=== PATIENT | female | born 1960 | race Caucasian/White ===

== ENCOUNTER 2016-10-21 01:22 | Inpatient (IN) | payer SELFPAY ==
[~2016-10-21] VITALS: Ht 152.4 cm; Wt 95.5 kg
[2016-10-21] VITALS (16 sets, daily range): BP systolic 118–175; BP diastolic 56–102
[2016-10-21 06:27] LABS: HEMATOCRIT 40.5 % (36.0-47.0); HEMOGLOBIN 13.8 g/dL (12.0-15.5); RED BLOOD COUNT 4.87 x10^6/uL (3.50-5.40); RED CELL DISTRIBUTION WIDTH 14.8 % (11.5-14.5); WHITE BLOOD COUNT 8.8 x10^3/uL (4.0-11.0)
[2016-10-21 06:49] LABS: CALCIUM 9.3 mg/dL (8.5-10.1); CREATININE 0.5 mg/dL (0.6-1.0); GFR 128.1; POTASSIUM 3.7 mmol/L (3.5-5.1)
[2016-10-21 06:50] LABS: CHOLESTEROL/HDL RATIO 3.5
[2016-10-21] MEDS ORDERED: amLODIPine BESYLATE 10 MG TABLET PO ONE (07:00)
[2016-10-21] MEDS ORDERED: LISINOPRIL 10 MG TABLET PO ONE (07:00)
[2016-10-21] MEDS ORDERED: BUTALB/APAP/CAFEIN 50/325/40MG TABLET. PO PRN (08:00)
[2016-10-21] MEDS ORDERED: ACETAMINOPHEN 325 MG TABLET. PO PRN (08:00)
[2016-10-21] MEDS ORDERED: ONDANSETRON PF 4 MG/2 ML VIAL. IV PRN (08:00)
--- NOTE | 2016-10-21 09:32 | PDOC2 ---
JEWEL JACKSON ADVERTISEMENT COMPOSITOR 10/21/16 0931: CARDIAC CONSULT DATE OF CONSULT Date of Consult DATE: 10/21/16 TIME: 09:28 REASON FOR CONSULT Reason for Consult: Elevated troponin REFERRING PHYSICIAN Referring Physician: Dr. Erickson SOURCE Source: Chart review, Patient HISTORY OF PRESENT ILLNESS HISTORY OF PRESENT ILLNESS This is a 55 yo female who initially presented to [facility] with complaints of SHIN. Patient report she woke up yesterday morning with SHIN and felt "sluggish." Went to work yesterday evening. 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 Had vision changes. No CP, palpitations, dizziness, diaphoresis, or SOA. Check BP, was 243/127. Rested for a bit, rechecked BP; remained elevated. Went to the ED for further evaluation. [facility] labs noted; trop 0.073. BP significantly elevated. CT head negative for acute changes. CXR negative. Transferred to [facility] for further care. Previous h/o hypertension. Was on lisinopril, had cough. Medication was discontinued due to ongoing cough. Blood pressure was reportedly "borderline" so antiHTN therapy was not replaced. No previous cardiac workup. PAST MEDICAL HISTORY Cardiovascular: HTN Pulmonary: No pertinent hx GI: No pertinent hx Heme/Onc: No pertinent hx Hepatobiliary: No pertinent hx Psych: No pertinent hx Musculoskeletal: Other (chronic pain) Rheumatologic: Fibromyalgia, Other (Lupus ) ENT: No pertinent hx Endocrine: Diabetes Dermatology: No pertinent hx PAST SURGICAL HISTORY Past Surgical History: Cholecystectomy, Tubal Ligation SOCIAL HISTORY Smoke: No ALCOHOL: none Drugs: None Lives: with Family CURRENT MEDICATIONS CURRENT MEDICATIONS Current Medications Medications (Trade) Dose Ordered Sig/Jordyn Route PRN Reason Start Time Stop Time Status Last Admin Dose Admin Amlodipine Besylate (Norvasc) 10 mg 1X ONCE PO 10/21/16 07:00 10/21/16 07:03 DC 10/21/16 08:20 Ondansetron HCl (Zofran) 4 mg PRN Q8HRS PRN IV NAUSEA/VOMITING 10/21/16 08:00 10/21/16 08:20 Acetaminophen/ Butalbital/ Caffeine (Fioricet) 1 tab PRN Q6HRS PRN PO MIGRAINE HEADACHE 10/21/16 08:00 10/21/16 08:19 ALLERGIES ALLERGIES: Coded Allergies: lisinopril (Verified Adverse Reaction, Intermediate, 10/21/16) Coughing ROS Review of System 14 point ROS conducted with pertinent positives noted above in HPI. PHYSICAL EXAM General: Alert, Oriented X3, Cooperative, No acute distress HEENT: Atraumatic, Mucous membr. moist/pink Lungs: Clear to auscultation, Normal air movement Heart: Regular rate, Normal S1, Normal S2 Abdomen: Soft, No tenderness Extremities: No cyanosis, No edema, Normal pulses Skin: No breakdown, No significant lesion Neuro: Normal speech, Sensation intact Psych/Mental Status: Mental status NL, Mood NL MUSCULOSKELETAL: Other (left knee pain) VITALS VITALS Vital Signs Date Time Temp Pulse Resp B/P (MAP) Pulse Ox O2 Delivery O2 Flow Rate FiO2 10/21/16 08:20 85 150/55 10/21/16 08:15 Room Air 10/21/16 07:00 97.8 17 93 97.8 LABS Lab: Laboratory Tests Test 10/21/16 06:16 White Blood Count 8.8 x10^3/uL (4.0-11.0) Red Blood Count 4.87 x10^6/uL (3.50-5.40) Hemoglobin 13.8 g/dL (12.0-15.5) Hematocrit 40.5 % (36.0-47.0) Mean Corpuscular Volume 83 fL (79-100) Mean Corpuscular Hemoglobin 28 pg (25-35) Mean Corpuscular Hemoglobin Concent 34 g/dL (31-37) Red Cell Distribution Width 14.8 % (11.5-14.5) Platelet Count 281 x10^3/uL (140-400) Sodium Level 140 mmol/L (136-145) Potassium Level 3.7 mmol/L (3.5-5.1) Chloride Level 105 mmol/L (98-107) Carbon Dioxide Level 27 mmol/L (21-32) Anion Gap 8 (6-14) Blood Urea Nitrogen 13 mg/dL (7-20) Creatinine 0.5 mg/dL (0.6-1.0) Estimated GFR (Cockcroft-Gault) 128.1 Glucose Level 106 mg/dL (70-99) Calcium Level 9.3 mg/dL (8.5-10.1) Troponin I Quantitative 0.317 ng/mL (0.000-0.055) Triglycerides Level 50 mg/dL (0-150) Cholesterol Level 186 mg/dL (0-200) LDL Cholesterol, Calculated 123 mg/dL (0-100) VLDL Cholesterol, Calculated 10 mg/dL (0-40) Non-HDL Cholesterol Calculated 133 mg/dL (0-129) HDL Cholesterol 53 mg/dL (40-60) Cholesterol/HDL Ratio 3.5 ASSESSMENT/PLAN ASSESSMENT/PLAN 1. Malignant hypertension 2. NSTEMI Recommendations Repeat EKG Check lipids, echo. NSTEMI likely secondary to malignant hypertension Stop Cardene gtt. Continue Norvasc. Allergy to ESSIE (cough). Will add ARB If echo WNL, will plan on outpatient ischemic evaluation. F/u in 4-6 weeks. Problems: DARY ISIDRO MD 10/21/16 1902: CARDIAC CONSULT ALLERGIES ALLERGIES: Coded Allergies: lisinopril (Verified Adverse Reaction, Intermediate, 10/21/16) Coughing ASSESSMENT/PLAN ASSESSMENT/PLAN Patient is a 55-year-old woman presenting with hypertensive emergency. At baseline she does not take any medications. She is morbidly obese and likely has sleep apnea according to her history. On examination she has normal heart tones. Her echocardiogram demonstrates mild anterior wall abnormality. She has elevated biomarkers in the setting of systolic blood pressure greater than 200. I had a long discussion with the patient today about the risks and benefits of further evaluation including cardiac catheterization for her elevated troponin and wall motion abnormality noted on echocardiography. After discussion the patient wishes to proceed with cardiac catheterization which will be planned for Monday after titration of medications for blood pressure control. Thank you for consultation. Problems: JEWEL JACKSON APRN Oct 21, 2016 09:31 DARY ISIDRO MD Oct 21, 2016 19:02
--- NOTE | 2016-10-21 09:58 | RAD ---
Indication: Transient ischemic attacks. Grayscale, color-flow and duplex Doppler evaluation of both carotid systems was performed. No significant atherosclerotic plaque is identified in either carotid system. The velocities are normal bilaterally. No velocity elevation or stenosis is seen. Both vertebral arteries show antegrade flow. Peak CCA velocity on the right is 65 cm/s and on the left 76 cm/s. Peak ICA velocity on the right is 66 cm/s and on the left 62 cm/s. The ICA to CCA ratio on the right is 1.0 and on the left is 1.0. Impression: No evidence of a hemodynamically significant stenosis.
[2016-10-21] MEDS ORDERED: LOSARTAN POTASSIUM 25 MG TABLET. PO SCH (10:30)
--- NOTE | 2016-10-21 11:21 | PDOC2 ---
NEUROLOGY CONSULT Date of Admission Date of Admission DATE: 10/21/16 TIME: 11:10 Reason for Consult Reason for Consult: Stroke symptoms Referring Physician Referring Physician: Dr. Erickson Source Source: Chart review, Patient History of Present Illness History of Present Illness The patient is a 55-year-old right-handed female with history of migraine headaches dating back to age 9 as well as hypertension. She has been off her blood pressure medicines for several years. She has tried Topamax and Elavil which caused excessive side effects of gets along with Excedrin migraine as needed. Yesterday morning she did not feel well and went to work. 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 She also had a severe typical migraine headache. Indeed, most of her migraines are associated with visual symptoms. She has been told that her MRI shows what sounds like demyelinating changes from migraines. She denies any history of stroke, seizure, or head injury. Headache is 2/10 now. All of her focal neurological symptoms have cleared. Past Medical History Pulmonary: Pneumonia CENTRAL NERVOUS SYSTEM: Migraine Rheumatologic: Other (possible lupus) ENT: Other Endocrine: Diabetes Past Surgical History Past Surgical History: Cholecystectomy, Tubal Ligation Family History Family History: Other (Alzheimer's) Social History Social History , pharmacy consultant, no alcohol or tobacco, recently moved here from [place] Current Medications Current Medications Current Medications Nicardipine HCl 50 mg/Sodium Chloride 270 ml @ 0 mls/hr CONT PRN IV SEE I/O RECORD; Start 10/21/16 at 04:30 Amlodipine Besylate (Norvasc) 10 mg 1X ONCE PO Last administered on 10/21/16 08:20; Start 10/21/16 at 07:00; Stop 10/21/16 at 10:57; Status DC Lisinopril (Prinivil) 10 mg 1X ONCE PO ; Start 10/21/16 at 07:00; Stop at 07:03; Status DC Ondansetron HCl (Zofran) 4 mg PRN Q8HRS PRN IV NAUSEA/VOMITING Last administered on 10/21/16 08:20; Start 10/21/16 at 08:00 Acetaminophen (Tylenol) 650 mg PRN Q8HRS PRN PO HEADACHE; Start 10/21/16 at 08: 00 Acetaminophen/ Butalbital/ Caffeine (Fioricet) 1 tab PRN Q6HRS PRN PO MIGRAINE HEADACHE Last administered on 10/21/16t 08:19; Start 10/21/16 at 08:00 Losartan Potassium (Cozaar) 25 mg DAILY PO ; Start 10/21/16 at 10:30 Amlodipine Besylate (Norvasc) 10 mg DAILY PO ; Start 10/22/16 at 09:00; Stop 10/22 at 09:00; Status DC Propranolol HCl (Inderal) 40 mg DAILY PO ; Start 10/21/16 at 11:30 Aspirin (Children'S Aspirin) 81 mg DAILYWBKFT PO ; Start 10/21/16 at 11:30 Allergies Allergies: Coded Allergies: lisinopril (Verified Adverse Reaction, Intermediate, 10/21/16) Coughing ROS Review of System Patient denies fevers, chills, weight loss, dyspnea, angina, abdominal pain, change in bowels, or dysuria. 14 point review of systems is negative. Physical Exam Physical Examination PHYSICAL EXAMINATION: Vital signs: see above. General appearance is normal and in no acute distress. HEENT: Normocephalic and nontraumatic. Eyes, nose, ears, and throat are unremarkable. Neck is supple. No lymphadenopathy. No bruits are heard over the carotid artery. No crepitus. NEUROLOGICAL EXAMINATION: Mental Status Examination: Alert. Oriented to time, place, and person. Answers questions and follows commends. Pupils are equal round and reactive to light and accommodation. Funduscopic exam: No papilledema. Extraocular movements are intact. Visual field exam shows no defect on the direct confrontation. No motor or sensory deficits on the facial exam. Uvula in the midline and the soft palate elevated symmetrically. No deviation of the tongue to any direction. Gross hearing is normal. Shoulder shrug normal. Muscle tone is normal. Muscle strength is 5. Deep tendon reflexes are 2+ all around. Plantar reflex is with flexion response bilaterally. Avstay-hp-qfuk test performance is accurate. Tandem walk test is accurate. Alternative movements are accurate. Romberg test is negative. Gait is normal. Sensory exam shows no deficits. No cerebellar signs are elicited. Vitals VITALS Vital Signs Date Time Temp Pulse Resp B/P (MAP) Pulse Ox O2 Delivery O2 Flow Rate FiO2 10/21/16 11:00 97.9 71 17 164/94 (117) 94 Room Air 97.9 Labs Labs Laboratory Tests Test 10/21/16 06:16 White Blood Count 8.8 x10^3/uL (4.0-11.0) Red Blood Count 4.87 x10^6/uL (3.50-5.40) Hemoglobin 13.8 g/dL (12.0-15.5) Hematocrit 40.5 % (36.0-47.0) Mean Corpuscular Volume 83 fL (79-100) Mean Corpuscular Hemoglobin 28 pg (25-35) Mean Corpuscular Hemoglobin Concent 34 g/dL (31-37) Red Cell Distribution Width 14.8 % (11.5-14.5) Platelet Count 281 x10^3/uL (140-400) Sodium Level 140 mmol/L (136-145) Potassium Level 3.7 mmol/L (3.5-5.1) Chloride Level 105 mmol/L (98-107) Carbon Dioxide Level 27 mmol/L (21-32) Anion Gap 8 (6-14) Blood Urea Nitrogen 13 mg/dL (7-20) Creatinine 0.5 mg/dL (0.6-1.0) Estimated GFR (Cockcroft-Gault) 128.1 Glucose Level 106 mg/dL (70-99) Calcium Level 9.3 mg/dL (8.5-10.1) Troponin I Quantitative 0.317 ng/mL (0.000-0.055) Triglycerides Level 50 mg/dL (0-150) Cholesterol Level 186 mg/dL (0-200) LDL Cholesterol, Calculated 123 mg/dL (0-100) VLDL Cholesterol, Calculated 10 mg/dL (0-40) Non-HDL Cholesterol Calculated 133 mg/dL (0-129) HDL Cholesterol 53 mg/dL (40-60) Cholesterol/HDL Ratio 3.5 Laboratory Tests Test 10/21/16 06:16 White Blood Count 8.8 x10^3/uL (4.0-11.0) Red Blood Count 4.87 x10^6/uL (3.50-5.40) Hemoglobin 13.8 g/dL (12.0-15.5) Hematocrit 40.5 % (36.0-47.0) Mean Corpuscular Volume 83 fL (79-100) Mean Corpuscular Hemoglobin 28 pg (25-35) Mean Corpuscular Hemoglobin Concent 34 g/dL (31-37) Red Cell Distribution Width 14.8 % (11.5-14.5) Platelet Count 281 x10^3/uL (140-400) Sodium Level 140 mmol/L (136-145) Potassium Level 3.7 mmol/L (3.5-5.1) Chloride Level 105 mmol/L (98-107) Carbon Dioxide Level 27 mmol/L (21-32) Anion Gap 8 (6-14) Blood Urea Nitrogen 13 mg/dL (7-20) Creatinine 0.5 mg/dL (0.6-1.0) Estimated GFR (Cockcroft-Gault) 128.1 Glucose Level 106 mg/dL (70-99) Calcium Level 9.3 mg/dL (8.5-10.1) Troponin I Quantitative 0.317 ng/mL (0.000-0.055) Triglycerides Level 50 mg/dL (0-150) Cholesterol Level 186 mg/dL (0-200) LDL Cholesterol, Calculated 123 mg/dL (0-100) VLDL Cholesterol, Calculated 10 mg/dL (0-40) Non-HDL Cholesterol Calculated 133 mg/dL (0-129) HDL Cholesterol 53 mg/dL (40-60) Cholesterol/HDL Ratio 3.[address] done at [facility]: Findings: The ventricles are appropriate in size, shape, and location for the patient's age. No obvious intracranial mass, mass-effect, midline shift, hemorrhage or obvious acute infarction is identified. Basilar cisterns are patent. Bone windows demonstrate no acute calvarial abnormality. The visualized paranasal sinuses appear clear. Impression: No acute intracranial process. Please note that CT can be relatively insensitive to acute ischemic infarction for up to 24 hours after symptom onset. Carotid Dopplers: Impression: No evidence of a hemodynamically significant stenosis. Assessment/Plan Assessment/Plan Impression: Stroke symptoms probably was related to migraine as well as the hypertension. No evidence that she had a stroke. Prior demyelinating changes on MRI due to migraines Hyperlipidemia Possible lupus, no evidence of current activity Recommendations. Instead of amlodipine, I would like to try a beta ida which will be helpful for her blood pressure as well as migraines. I discussed the side effects. She will take propanolol 40 mg daily for 4 days and then 40 mg twice a day after that. MRI of the brain Echocardiogram Carotid Dopplers, already done Daily aspirin Consider statin Follow-up with me in 6 weeks. Thank you for letting me help with the patient's care. AYAAN CINTRON MD Oct 21, 2016 11:21
[2016-10-21] MEDS: ASPIRIN CHEWABLE 81 MG TABLET. PO SCH (12:09)
[2016-10-21] MEDS: PROPRANOLOL 40 MG TABLET. PO SCH (12:09)
--- NOTE | 2016-10-21 13:00 | CARD ---
APPROVED REPORT EXAM: Two-dimensional and M-mode echocardiogram with Doppler and color Doppler. Other Information Quality : GoodHR: 66bpm Rhythm : NSR INDICATION CVA/TIA Hypertension/HCVD Echo Enhancing Agent Indication: Rule Out Septal Defect Agent/Amount Used: Agitated Saline 16mL RISK FACTORS Obesity 2D DIMENSIONS RVDd3.3 (2.9-3.5cm)Left Atrium(2D)3.7 (1.6-4.0cm) IVSd0.9 (0.7-1.1cm)Aortic Root(2D)2.9 (2.0-3.7cm) LVDd4.7 (3.9-5.9cm)LVOT Diameter2.2 (1.8-2.4cm) PWd1.0 (0.7-1.1cm)LVDs3.3 (2.5-4.0cm) FS (%) 30.5 %SV59.5 ml LVEF(%)57.9 (>50%) Aortic Valve AoV Peak Lonny.129.3cm/sAoV VTI28.7cm AO Peak GR.6.7mmHgLVOT Peak Lonny.86.1cm/s AO Mean GR.4mmHgAVA (VMAX)2.57cm2 Mitral Valve MV E Qqptbkjd67.4cm/sMV E Peak Gr.5mmHg MV DECEL [id number] A Bgipzayd976.3cm/s MV E Mean Gr.2mmHgE/A Ratio0.6 MV A [id number] Pulmonary Valve PV Peak Fuoxmsjz150.7cm/s Pulmonary Vein S1 Uiaaazrg67.3cm/sD2 Gyiekggb44.4cm/s PVa [id number] LEFT VENTRICLE The left ventricle is normal size. There is normal left ventricular wall thickness. The left ventricu lar systolic function is normal and the ejection fraction is within normal range. The Ejection Fracti on is 50%. Abnormal septal wall motion is noted. There is mild hypokinesis in the basal and mid anter oseptal wall as well as the mid to distal anterior wall. Transmitral Doppler flow pattern is Grade I- abnormal relaxation pattern. RIGHT VENTRICLE The right ventricle is normal size. There is normal right ventricular wall thickness. The right ventr icular systolic function is normal. ATRIA The left atrium size is normal. The right atrium size is normal. The interatrial septum is intact wit h no evidence for an atrial septal defect or patent foramen ovale as noted on 2-D or Doppler imaging. Suboptimal agitated saline study did not reveal any right to left shunt. AORTIC VALVE The aortic valve is mildly sclerotic. The aortic valve is trileaflet. Doppler and Color Flow revealed no significant aortic regurgitation. There is no significant aortic valvular stenosis. MITRAL VALVE Mitral annular calcification is mild. The mitral valve leaflets are thickened. There is no evidence o f mitral valve prolapse. There is no mitral valve stenosis. Doppler and Color Flow revealed no mitral valve regurgitation noted. TRICUSPID VALVE Doppler and Color Flow revealed no tricuspid valve regurgitation noted. Unable to determine pulmonary artery pressure at exam time. PULMONIC VALVE Doppler and Color Flow revealed mild pulmonic valvular regurgitation. There is no pulmonic valvular s tenosis. GREAT VESSELS The aortic root is normal in size. The ascending aorta is normal in size. The pulmonary artery is nor mal. The IVC is normal in size and collapses >50% with inspiration. PERICARDIAL EFFUSION There is no evidence of significant pericardial effusion. Critical Notification Critical Value: No <Conclusion> The left ventricular systolic function is normal and the ejection fraction is within normal range. Th e Ejection Fraction is 50%. Abnormal septal wall motion is noted. There is mild hypokinesis in the basal and mid anteroseptal wal l as well as the mid to distal anterior wall. The interatrial septum is intact with no evidence for an atrial septal defect or patent foramen ovale as noted on 2-D or Doppler imaging. Suboptimal agitated saline study did not reveal any right to lef t shunt.
--- NOTE | 2016-10-21 13:55 | PDOC1 ---
History and Physical Date of Admission Date of Admission DATE: 10/21/16 TIME: 0900 Identification/Chief Complaint Chief Complaint Headache Problems: Source Source: Patient History of Present Illness History of Present Illness Mrs Douglass is a 55 y/o woman with PMH of hypertension, briefly on lisinopril, but stopped due to cough in the distant past. She presented to the ER at [facility] with ongoing headache since rising in the morning, feeling sluggish and vision changes, as well as cahnged handwriting noted by one of her coworkers. In the ER, CT non-con of the head was negative for acute cahnges, but blood pressure was noted to be in the 240s/120s, and she was transferred to [facility] at [facility]. slight bump in troponin was also noted. Patient denied any chest pain, shortness of breath, diaphoresis, dizziness. Past Medical History Cardiovascular: HTN CENTRAL NERVOUS SYSTEM: Migraine Musculoskeletal: Other (chronic pain) Rheumatologic: Fibromyalgia, Other (Lupus ) Endocrine: Diabetes Past Surgical History Past Surgical History: Cholecystectomy, Tubal Ligation Family History Family History sibling, parents with HTN. brother with DM. parents with CAD Social History Smoke: No ALCOHOL: none Drugs: None Current Medications Current Medications Current Medications Nicardipine HCl 50 mg/Sodium Chloride 270 ml @ 0 mls/hr CONT PRN IV SEE I/O RECORD; Start 10/21/16 at 04:30 Amlodipine Besylate (Norvasc) 10 mg 1X ONCE PO Last administered on 10/21/16 08:20; Start 10/21/16 at 07:00; Stop 10/21/16 at 10:57; Status DC Lisinopril (Prinivil) 10 mg 1X ONCE PO ; Start 10/21/16 at 07:00; Stop at 07:03; Status DC Ondansetron HCl (Zofran) 4 mg PRN Q8HRS PRN IV NAUSEA/VOMITING Last administered on 10/21/16 08:20; Start 10/21/16 at 08:00 Acetaminophen (Tylenol) 650 mg PRN Q8HRS PRN PO HEADACHE; Start 10/21/16 at 08: 00 Acetaminophen/ Butalbital/ Caffeine (Fioricet) 1 tab PRN Q6HRS PRN PO MIGRAINE HEADACHE Last administered on 6/30/17at 08:19; Start 10/21/16 at 08:00 Losartan Potassium (Cozaar) 25 mg DAILY PO ; Start 10/21/16 at 10:30; Stop 10/21 at 12:07; Status DC Amlodipine Besylate (Norvasc) 10 mg DAILY PO ; Start 10/22/16 at 09:00; Stop 10/22 at 09:00; Status DC Propranolol HCl (Inderal) 40 mg DAILY PO Last administered on 10/21/16 12:09; Start 10/21/16 at 11:30 Aspirin (Children'S Aspirin) 81 mg DAILYWBKFT PO Last administered on 12:09; Start 10/21/16 at 11:30 Hydrochlorothiazide (Hydrodiuril) 25 mg DAILY PO ; Start 10/22/16 at 09:00 Amlodipine Besylate (Norvasc) 10 mg DAILY PO ; Start 10/22/16 at 09:00 Allergies Allergies: Coded Allergies: lisinopril (Verified Adverse Reaction, Intermediate, 10/21/16) Coughing ROS Review of System positive as per HPI. SHIN has now resolved. She has chronic back pain for which she is taking almost daily ibuprofen. rest of organ system review is negative Physical Exam General: Alert, Oriented X3, Cooperative, No acute distress HEENT: Atraumatic, PERRLA, EOMI Lungs: Clear to auscultation Heart: RRR Abdomen: Normal bowel sounds, Soft, No tenderness Extremities: No clubbing, No cyanosis, No edema Skin: No rashes Neuro: Normal speech Psych/Mental Status: Mental status NL Vitals Vitals Vital Signs Date Time Temp Pulse Resp B/P (MAP) Pulse Ox O2 Delivery O2 Flow Rate FiO2 10/21/16 12:09 71 164/94 10/21/16 11:00 97.9 17 94 Room Air 97.9 Labs Labs Laboratory Tests Test 10/21/16 06:16 10/21/16 11:10 White Blood Count 8.8 x10^3/uL (4.0-11.0) Red Blood Count 4.87 x10^6/uL (3.50-5.40) Hemoglobin 13.8 g/dL (12.0-15.5) Hematocrit 40.5 % (36.0-47.0) Mean Corpuscular Volume 83 fL (79-100) Mean Corpuscular Hemoglobin 28 pg (25-35) Mean Corpuscular Hemoglobin Concent 34 g/dL (31-37) Red Cell Distribution Width 14.8 % (11.5-14.5) Platelet Count 281 x10^3/uL (140-400) Sodium Level 140 mmol/L (136-145) Potassium Level 3.7 mmol/L (3.5-5.1) Chloride Level 105 mmol/L (98-107) Carbon Dioxide Level 27 mmol/L (21-32) Anion Gap 8 (6-14) Blood Urea Nitrogen 13 mg/dL (7-20) Creatinine 0.5 mg/dL (0.6-1.0) Estimated GFR (Cockcroft-Gault) 128.1 Glucose Level 106 mg/dL (70-99) Calcium Level 9.3 mg/dL (8.5-10.1) Troponin I Quantitative 0.317 ng/mL (0.000-0.055) 0.126 ng/mL (0.000-0.055) Triglycerides Level 50 mg/dL (0-150) Cholesterol Level 186 mg/dL (0-200) LDL Cholesterol, Calculated 123 mg/dL (0-100) VLDL Cholesterol, Calculated 10 mg/dL (0-40) Non-HDL Cholesterol Calculated 133 mg/dL (0-129) HDL Cholesterol 53 mg/dL (40-60) Cholesterol/HDL Ratio 3.5 Laboratory Tests Test 10/21/16 06:16 10/21/16 11:10 White Blood Count 8.8 x10^3/uL (4.0-11.0) Red Blood Count 4.87 x10^6/uL (3.50-5.40) Hemoglobin 13.8 g/dL (12.0-15.5) Hematocrit 40.5 % (36.0-47.0) Mean Corpuscular Volume 83 fL (79-100) Mean Corpuscular Hemoglobin 28 pg (25-35) Mean Corpuscular Hemoglobin Concent 34 g/dL (31-37) Red Cell Distribution Width 14.8 % (11.5-14.5) Platelet Count 281 x10^3/uL (140-400) Sodium Level 140 mmol/L (136-145) Potassium Level 3.7 mmol/L (3.5-5.1) Chloride Level 105 mmol/L (98-107) Carbon Dioxide Level 27 mmol/L (21-32) Anion Gap 8 (6-14) Blood Urea Nitrogen 13 mg/dL (7-20) Creatinine 0.5 mg/dL (0.6-1.0) Estimated GFR (Cockcroft-Gault) 128.1 Glucose Level 106 mg/dL (70-99) Calcium Level 9.3 mg/dL (8.5-10.1) Troponin I Quantitative 0.317 ng/mL (0.000-0.055) 0.126 ng/mL (0.000-0.055) Triglycerides Level 50 mg/dL (0-150) Cholesterol Level 186 mg/dL (0-200) LDL Cholesterol, Calculated 123 mg/dL (0-100) VLDL Cholesterol, Calculated 10 mg/dL (0-40) Non-HDL Cholesterol Calculated 133 mg/dL (0-129) HDL Cholesterol 53 mg/dL (40-60) Cholesterol/HDL Ratio 3.5 VTE Prophylaxis Ordered VTE Prophylaxis Devices: No VTE Pharmacological Prophylaxi: Yes Assessment/Plan Assessment/Plan Mrs Douglass is a 55 y/o woman with hypertensive urgency. Blood pressure is much improved currently; wean off cardizem drip, start oral antihypertensives. appreciate cardiology input. Troponin leak may have been due to hypertension. Further studies are pending, incl echo. will await results to determine course of action. Will evaluate for other cardiac risk factors as well, incl lipids and DM. Per her daughter, patient has been on glipizide in the past, not now. check finger stick blood glucose and HgbA1c. Prophylaxis will be obtained with lovenox for now. ELISE DASILVA MD Oct 21, 2016 13:55
--- NOTE | 2016-10-21 16:06 | EKG ---
[facility] [address] [place] [address] Test Date: 2016-10-21 Test Time: 16:04:25 Pat Name: ZIYAD SAUCEDO Department: Room: 246 Gender: F Assistant Public Defender: RADHA : 1960 Requested By: JEWEL JACKSON Order Number: [id number] Reading MD: Measurements Intervals [place] Rate: 59 P: 47 TN: 196 QRS: 13 QRSD: 82 T: 116 QT: 484 QTc: 484 Interpretive Statements SINUS RHYTHM QRS(T) CONTOUR ABNORMALITY CONSISTENT WITH ANTEROSEPTAL INFARCT AGE UNDETERMINED T ABNORMALITY IN HIGH LATERAL LEADS ABNORMAL ECG RI6.01 No previous ECG available for comparison
[2016-10-21] MEDS ORDERED: DEXTROSE 50% 25 GM / 50ML DISP.SYRIN. IV PRN (16:30)
--- NOTE | 2016-10-21 16:32 | RAD ---
MRI of the brain without contrast 10/21/2016 CLINICAL HISTORY: Hypertension, increasing migraine headaches and blurred vision. TECHNIQUE: Unenhanced T1-weighted and FLAIR sagittal and axial, T2-weighted axial and coronal and gradient echo and diffusion-weighted axial images of the brain were obtained. FINDINGS: There is generalized parenchymal atrophy. Patchy, confluent and multiple focal areas of abnormally increased signal intensity are seen scattered throughout the periventricular and subcortical white matter of both cerebral hemispheres on the FLAIR and T2-weighted images. These have a nonspecific MRI appearance and could reflect areas of small vessel ischemic disease, can be seen in the setting a demyelinating disorder such as multiple sclerosis, or can be seen in patients with history of migraine headaches. No definite acute parenchymal abnormality is seen. There is no MRI evidence of acute ischemia/infarction. No extra-axial fluid collection is noted. Mild mucosal thickening is seen scattered throughout the paranasal sinuses. Normal flow voids are seen within the major vascular structures surrounding the brain parenchyma. IMPRESSION: 1. Atrophy. 2. Areas of abnormally increased signal intensity are seen throughout the white matter of both cerebral hemispheres on the FLAIR and T2-weighted images. These have a nonspecific MRI appearance as outlined above. 3. No acute parenchymal abnormality is seen. Electronically signed by: Emery Ugalde MD (10/21/2016 4:28 PM)
--- NOTE | 2016-10-22 02:07 | ACF ---
Admission Forms Criteria HEADACHES Clinical Indications for Admission to Inpatient Care (Place 'X' for any and all applicable criteria): Admission is indicated for ANY ONE of the following(1)(2)(3)(4): [X]I. Inpatient admission required rather than observational care (Also use Headaches: Observation Care as appropriate) because of ANY ONE of the following: [ ]a) Severe pain requiring acute inpatient management [ ]b) Altered mental status that is severe or persistent [ ]c) Vomiting or dehydration that is severe or persistent [ ]d) New-onset focal neurologic deficit that is severe or persistent [X]e) Hypertension requiring inpatient treatment [ ]f) Severe (new) neurologic findings requiring inpatient care as indicated by ANY ONE of following(9)(10): [ ]1) Papilledema [ ]2) Cerebral edema [ ]3) Mass effect on CT scan [ ]4) Cerebral bleeding, ischemia, or vasospasm(16) [ ]5) Hydrocephalus(17) [ ]6) Uncontrolled seizures [ ]g) IV infusion of anticoagulation, platelet inhibitors vasoactive, or antiarrhythmic medication. [ ]h) Cerebral bleeding, hydrocephalus, or vasospasm monitoring (16) [ ]i) Increased intracranial pressure or cerebral edema monitoring (17) [ ]j) Other condition, treatment or monitoring requiring inpatient admission [ ]II. Unruptured but threatening aneurysm or vascular malformation [ ]III. Venous sinus thrombosis [ ]IV. Increased intracranial pressure [ ]V. Cerebral spinal fluid leak with decreased intracranial pressure [ ]. Medication-overuse headache that has failed all outpatient management options [ ]VII. Vasculitis (eg, giant cell (temporal) arteritis, central nervous system vasculitis) requiring IV corticosteroids, IV antithrombotic therapy, or inpatient monitoring (eg, visual symptoms or findings, other ischemic manifestations)[A](10)(11) Extended stay beyond goal length of stay may be needed for (27): [ ]a) Intractable migraine [ ]b) Subarachnoid or intracranial hemorrhage [ ]c) Malignant hypertension [ ]d) Detoxification from drug withdrawal in medication-overuse headache (29) The original [facility] [employer] content created by Janeth Youssef has been revised. The portions of the content which have been revised are identified through the use of italic text or in bold, and Janeth Youssef has neither reviewed nor approved the modified material.All other unmodified content is copyright [facility]. Please see references footnoted in the original [facility] edition 2016 Admission Criteria Met?: Yes NEISHA YAP Oct 22, 2016 02:07
[2016-10-22 03:05] VITALS: BP 132/66
[2016-10-22 04:45] LABS: BASO % 1 % (0-3); EOS % 1 % (0-3); HEMATOCRIT 42.6 % (36.0-47.0); HEMOGLOBIN 14.6 g/dL (12.0-15.5); LYMPH # 2.6 x10^3/uL (1.0-4.8); LYMPH % 35 % (24-48); MEAN CORPUSCULAR HEMOGLOBIN 29 pg (25-35); MEAN CORPUSCULAR HGB CONC 34 g/dL (31-37); MEAN CORPUSCULAR VOLUME 84 fL (79-100); MONO % 6 % (0-9); NEUT % 57 % (31-73); PLATELET COUNT 294 x10^3/uL (140-400); RED BLOOD COUNT 5.07 x10^6/uL (3.50-5.40); RED CELL DISTRIBUTION WIDTH 15.3 % (11.5-14.5); WHITE BLOOD COUNT 7.5 x10^3/uL (4.0-11.0)
[2016-10-22 05:07] LABS: ALBUMIN 3.6 g/dL (3.4-5.0); CALCIUM 9.1 mg/dL (8.5-10.1); CREATININE 0.8 mg/dL (0.6-1.0); GFR 74.5; POTASSIUM 3.7 mmol/L (3.5-5.1); TOTAL BILIRUBIN 0.7 mg/dL (0.2-1.0); TOTAL PROTEIN 7.2 g/dL (6.4-8.2)
[2016-10-22 07:00] VITALS: BP 138/76
[2016-10-22] MEDS: ASPIRIN CHEWABLE 81 MG TABLET. PO SCH (08:34)
[2016-10-22] MEDS: amLODIPine BESYLATE 10 MG TABLET PO SCH (08:35)
[2016-10-22] MEDS: hydroCHLOROthiazide 25 MG TABLET PO SCH (08:35)
[2016-10-22] MEDS: PROPRANOLOL 40 MG TABLET. PO SCH (08:35)
[2016-10-22] MEDS ORDERED: amLODIPine BESYLATE 10 MG TABLET PO SCH (09:00)
[2016-10-22 11:00] VITALS: BP 121/66
--- NOTE | 2016-10-22 11:36 | PDOC ---
PROGRESS NOTES Subjective Subjective The patient looks and feels well today. Objective Objective Vital Signs Date Time Temp Pulse Resp B/P (MAP) Pulse Ox O2 Delivery O2 Flow Rate FiO2 10/22/16 08:35 70 138/76 10/22/16 07:54 Room Air 10/22/16 07:00 97.4 16 94 97.4 Intake and Output 10/22/16 07:00 Intake Total 1025 ml Output Total 670 ml Balance 355 ml Intake Oral 1025 ml Output Urine Total 600 ml Emesis 70 ml Physical Exam Abdomen: Normal bowel sounds Heart: Regular rate General: No acute distress Lungs: Clear to auscultation Assessment Assessment ASSESSMENT/PLAN ASSESSMENT/PLAN Hypertensive emergency. Blood pressure under significant better control today. Continue medications. Obesity and likely sleep apnea Echocardiogram demonstrates mild anterior wall abnormality. She has elevated biomarkers in the setting of systolic blood pressure greater than 200. Discussion regarding cardiac catheterization as per yesterday's cardiology note. We'll continue present medications and plan on cardiac catheterization Monday. Comment Review of Relevant I have reviewed the following items pedro luis (where applicable) has been applied. Labs Laboratory Tests Test 10/21/16 06:16 10/21/16 11:10 10/22/16 04:15 White Blood Count 8.8 x10^3/uL (4.0-11.0) 7.5 x10^3/uL (4.0-11.0) Red Blood Count 4.87 x10^6/uL (3.50-5.40) 5.07 x10^6/uL (3.50-5.40) Hemoglobin 13.8 g/dL (12.0-15.5) 14.6 g/dL (12.0-15.5) Hematocrit 40.5 % (36.0-47.0) 42.6 % (36.0-47.0) Mean Corpuscular Volume 83 fL (79-100) 84 fL (79-100) Mean Corpuscular Hemoglobin 28 pg (25-35) 29 pg (25-35) Mean Corpuscular Hemoglobin Concent 34 g/dL (31-37) 34 g/dL (31-37) Red Cell Distribution Width 14.8 % (11.5-14.5) 15.3 % (11.5-14.5) Platelet Count 281 x10^3/uL (140-400) 294 x10^3/uL (140-400) Sodium Level 140 mmol/L (136-145) 140 mmol/L (136-145) Potassium Level 3.7 mmol/L (3.5-5.1) 3.7 mmol/L (3.5-5.1) Chloride Level 105 mmol/L (98-107) 103 mmol/L (98-107) Carbon Dioxide Level 27 mmol/L (21-32) 27 mmol/L (21-32) Anion Gap 8 (6-14) 10 (6-14) Blood Urea Nitrogen 13 mg/dL (7-20) 26 mg/dL (7-20) Creatinine 0.5 mg/dL (0.6-1.0) 0.8 mg/dL (0.6-1.0) Estimated GFR (Cockcroft-Gault) 128.1 74.5 Glucose Level 106 mg/dL (70-99) 105 mg/dL (70-99) Calcium Level 9.3 mg/dL (8.5-10.1) 9.1 mg/dL (8.5-10.1) Troponin I Quantitative 0.317 ng/mL (0.000-0.055) 0.126 ng/mL (0.000-0.055) Triglycerides Level 50 mg/dL (0-150) Cholesterol Level 186 mg/dL (0-200) LDL Cholesterol, Calculated 123 mg/dL (0-100) VLDL Cholesterol, Calculated 10 mg/dL (0-40) Non-HDL Cholesterol Calculated 133 mg/dL (0-129) HDL Cholesterol 53 mg/dL (40-60) Cholesterol/HDL Ratio 3.5 Neutrophils (%) (Auto) 57 % (31-73) Lymphocytes (%) (Auto) 35 % (24-48) Monocytes (%) (Auto) 6 % (0-9) Eosinophils (%) (Auto) 1 % (0-3) Basophils (%) (Auto) 1 % (0-3) Neutrophils # (Auto) 4.3 x10^3uL (1.8-7.7) Lymphocytes # (Auto) 2.6 x10^3/uL (1.0-4.8) Monocytes # (Auto) 0.4 x10^3/uL (0.0-1.1) Eosinophils # (Auto) 0.1 x10^3/uL (0.0-0.7) Basophils # (Auto) 0.0 x10^3/uL (0.0-0.2) BUN/Creatinine Ratio 33 (6-20) Total Bilirubin 0.7 mg/dL (0.2-1.0) Aspartate Amino Transf (AST/SGOT) 18 U/L (15-37) Alanine Aminotransferase (ALT/SGPT) 27 U/L (14-59) Alkaline Phosphatase 147 U/L (46-116) Total Protein 7.2 g/dL (6.4-8.2) Albumin 3.6 g/dL (3.4-5.0) Albumin/Globulin Ratio 1.0 (1.0-1.7) Laboratory Tests Test 10/22/16 04:15 White Blood Count 7.5 x10^3/uL (4.0-11.0) Red Blood Count 5.07 x10^6/uL (3.50-5.40) Hemoglobin 14.6 g/dL (12.0-15.5) Hematocrit 42.6 % (36.0-47.0) Mean Corpuscular Volume 84 fL (79-100) Mean Corpuscular Hemoglobin 29 pg (25-35) Mean Corpuscular Hemoglobin Concent 34 g/dL (31-37) Red Cell Distribution Width 15.3 % (11.5-14.5) Platelet Count 294 x10^3/uL (140-400) Neutrophils (%) (Auto) 57 % (31-73) Lymphocytes (%) (Auto) 35 % (24-48) Monocytes (%) (Auto) 6 % (0-9) Eosinophils (%) (Auto) 1 % (0-3) Basophils (%) (Auto) 1 % (0-3) Neutrophils # (Auto) 4.3 x10^3uL (1.8-7.7) Lymphocytes # (Auto) 2.6 x10^3/uL (1.0-4.8) Monocytes # (Auto) 0.4 x10^3/uL (0.0-1.1) Eosinophils # (Auto) 0.1 x10^3/uL (0.0-0.7) Basophils # (Auto) 0.0 x10^3/uL (0.0-0.2) Sodium Level 140 mmol/L (136-145) Potassium Level 3.7 mmol/L (3.5-5.1) Chloride Level 103 mmol/L (98-107) Carbon Dioxide Level 27 mmol/L (21-32) Anion Gap 10 (6-14) Blood Urea Nitrogen 26 mg/dL (7-20) Creatinine 0.8 mg/dL (0.6-1.0) Estimated GFR (Cockcroft-Gault) 74.5 BUN/Creatinine Ratio 33 (6-20) Glucose Level 105 mg/dL (70-99) Calcium Level 9.1 mg/dL (8.5-10.1) Total Bilirubin 0.7 mg/dL (0.2-1.0) Aspartate Amino Transf (AST/SGOT) 18 U/L (15-37) Alanine Aminotransferase (ALT/SGPT) 27 U/L (14-59) Alkaline Phosphatase 147 U/L (46-116) Total Protein 7.2 g/dL (6.4-8.2) Albumin 3.6 g/dL (3.4-5.0) Albumin/Globulin Ratio 1.0 (1.0-1.7) Medications Current Medications Nicardipine HCl 50 mg/Sodium Chloride 270 ml @ 0 mls/hr CONT PRN IV SEE I/O RECORD; Start 10/21/16 at 04:30 Amlodipine Besylate (Norvasc) 10 mg 1X ONCE PO Last administered on 10/21/16 08:20; Start 10/21/16 at 07:00; Stop 10/21/16 at 10:57; Status DC Lisinopril (Prinivil) 10 mg 1X ONCE PO ; Start 10/21/16 at 07:00; Stop at 07:03; Status DC Ondansetron HCl (Zofran) 4 mg PRN Q8HRS PRN IV NAUSEA/VOMITING Last administered on 10/21/16 08:20; Start 10/21/16 at 08:00 Acetaminophen (Tylenol) 650 mg PRN Q8HRS PRN PO HEADACHE Last administered on 08:35; Start 10/21/16 at 08:00 Acetaminophen/ Butalbital/ Caffeine (Fioricet) 1 tab PRN Q6HRS PRN PO MIGRAINE HEADACHE Last administered on 10/21/16 08:19; Start 10/21/16 at 08:00 Losartan Potassium (Cozaar) 25 mg DAILY PO ; Start 10/21/16 at 10:30; Stop 10/21 at 12:07; Status DC Amlodipine Besylate (Norvasc) 10 mg DAILY PO ; Start 10/22/16 at 09:00; Stop 10/22 at 09:00; Status DC Propranolol HCl (Inderal) 40 mg DAILY PO Last administered on 10/22/16 08:35; Start 10/21/16 at 11:30 Aspirin (Children'S Aspirin) 81 mg DAILYWBKFT PO Last administered on 10/22/16 08:34; Start 10/21/16 at 11:30 Hydrochlorothiazide (Hydrodiuril) 25 mg DAILY PO Last administered on 10/22/16 08:35; Start 10/22/16 at 09:00 Amlodipine Besylate (Norvasc) 10 mg DAILY PO Last administered on 10/22/16 08: 35; Start 10/22/16 at 09:00 Dextrose (Dextrose 50%-Water Syringe) 12.5 gm PRN Q15MIN PRN IV SEE COMMENTS; Start 10/21/16 at 16:30 Vitals/I & O Vital Sign - Last 24 Hours 10/21/16 10/21/16 10/21/16 10/21/16 12:09 15:00 19:27 19:36 Temp 98.0 98.9 98.0 98.9 Pulse 71 59 62 Resp 18 22 B/P (MAP) 164/94 124/58 (80) 152/61 (91) Pulse Ox 95 94 O2 Delivery Room Air Room Air Room Air 10/21/16 10/22/16 10/22/16 10/22/16 23:12 03:05 07:00 07:54 Temp 98.1 97.7 97.4 98.1 97.7 97.4 Pulse 65 70 70 Resp 18 18 16 B/P (MAP) 118/82 (94) 132/66 (88) 138/76 (96) Pulse Ox 93 96 94 O2 Delivery Room Air Room Air Room Air Room Air 10/22/16 10/22/16 08:35 08:35 Pulse 70 70 B/P (MAP) 138/76 138/76 Intake and Output 10/21/16 10/21/16 10/22/16 15:00 23:00 07:00 Intake Total 475 ml 550 ml Output Total 670 ml Balance -195 ml 550 ml TIARRA CUNNINGHAM MD Oct 22, 2016 11:36
--- NOTE | 2016-10-22 13:58 | PDOC ---
PROGRESS NOTES Assessment Neurological symptoms related to migraine without evidence of stroke. Hypertension also played a role Known demyelinative changes on the MRI due to migraines since age 9. Plan Continue propanolol Note plans for cardiac catheterization on 10/24 Follow-up with me in 6 weeks. Subjective Thinks she may have some caffeine withdrawal headache today, 06/03, but does not want to resume caffeine Objective Vital Signs Date Time Temp Pulse Resp B/P (MAP) Pulse Ox O2 Delivery O2 Flow Rate FiO2 10/22/16 11:00 97.7 53 16 121/66 (84) 94 Room Air 97.7 Intake and Output 10/22/16 07:00 Intake Total 1025 ml Output Total 670 ml Balance 355 ml Intake Oral 1025 ml Output Urine Total 600 ml Emesis 70 ml PHYSICAL EXAM Alert. Oriented to time, place and person. PERRL. EOMI. CN: no focal findings. Muscle tone: normal. Muscle strength: 5/5 DTR: 2+ Plantar reflex: Flexor Gait: not examined in bed. Sensory exam: no abnormal findings. No cerebellar signs elicited. Review of Relevant I have reviewed the following items pedro luis (where applicable) has been applied. Labs Laboratory Tests Test 10/21/16 06:16 10/21/16 11:10 10/22/16 04:15 White Blood Count 8.8 x10^3/uL (4.0-11.0) 7.5 x10^3/uL (4.0-11.0) Red Blood Count 4.87 x10^6/uL (3.50-5.40) 5.07 x10^6/uL (3.50-5.40) Hemoglobin 13.8 g/dL (12.0-15.5) 14.6 g/dL (12.0-15.5) Hematocrit 40.5 % (36.0-47.0) 42.6 % (36.0-47.0) Mean Corpuscular Volume 83 fL (79-100) 84 fL (79-100) Mean Corpuscular Hemoglobin 28 pg (25-35) 29 pg (25-35) Mean Corpuscular Hemoglobin Concent 34 g/dL (31-37) 34 g/dL (31-37) Red Cell Distribution Width 14.8 % (11.5-14.5) 15.3 % (11.5-14.5) Platelet Count 281 x10^3/uL (140-400) 294 x10^3/uL (140-400) Sodium Level 140 mmol/L (136-145) 140 mmol/L (136-145) Potassium Level 3.7 mmol/L (3.5-5.1) 3.7 mmol/L (3.5-5.1) Chloride Level 105 mmol/L (98-107) 103 mmol/L (98-107) Carbon Dioxide Level 27 mmol/L (21-32) 27 mmol/L (21-32) Anion Gap 8 (6-14) 10 (6-14) Blood Urea Nitrogen 13 mg/dL (7-20) 26 mg/dL (7-20) Creatinine 0.5 mg/dL (0.6-1.0) 0.8 mg/dL (0.6-1.0) Estimated GFR (Cockcroft-Gault) 128.1 74.5 Glucose Level 106 mg/dL (70-99) 105 mg/dL (70-99) Calcium Level 9.3 mg/dL (8.5-10.1) 9.1 mg/dL (8.5-10.1) Troponin I Quantitative 0.317 ng/mL (0.000-0.055) 0.126 ng/mL (0.000-0.055) Triglycerides Level 50 mg/dL (0-150) Cholesterol Level 186 mg/dL (0-200) LDL Cholesterol, Calculated 123 mg/dL (0-100) VLDL Cholesterol, Calculated 10 mg/dL (0-40) Non-HDL Cholesterol Calculated 133 mg/dL (0-129) HDL Cholesterol 53 mg/dL (40-60) Cholesterol/HDL Ratio 3.5 Neutrophils (%) (Auto) 57 % (31-73) Lymphocytes (%) (Auto) 35 % (24-48) Monocytes (%) (Auto) 6 % (0-9) Eosinophils (%) (Auto) 1 % (0-3) Basophils (%) (Auto) 1 % (0-3) Neutrophils # (Auto) 4.3 x10^3uL (1.8-7.7) Lymphocytes # (Auto) 2.6 x10^3/uL (1.0-4.8) Monocytes # (Auto) 0.4 x10^3/uL (0.0-1.1) Eosinophils # (Auto) 0.1 x10^3/uL (0.0-0.7) Basophils # (Auto) 0.0 x10^3/uL (0.0-0.2) BUN/Creatinine Ratio 33 (6-20) Total Bilirubin 0.7 mg/dL (0.2-1.0) Aspartate Amino Transf (AST/SGOT) 18 U/L (15-37) Alanine Aminotransferase (ALT/SGPT) 27 U/L (14-59) Alkaline Phosphatase 147 U/L (46-116) Total Protein 7.2 g/dL (6.4-8.2) Albumin 3.6 g/dL (3.4-5.0) Albumin/Globulin Ratio 1.0 (1.0-1.7) Laboratory Tests Test 10/22/16 04:15 White Blood Count 7.5 x10^3/uL (4.0-11.0) Red Blood Count 5.07 x10^6/uL (3.50-5.40) Hemoglobin 14.6 g/dL (12.0-15.5) Hematocrit 42.6 % (36.0-47.0) Mean Corpuscular Volume 84 fL (79-100) Mean Corpuscular Hemoglobin 29 pg (25-35) Mean Corpuscular Hemoglobin Concent 34 g/dL (31-37) Red Cell Distribution Width 15.3 % (11.5-14.5) Platelet Count 294 x10^3/uL (140-400) Neutrophils (%) (Auto) 57 % (31-73) Lymphocytes (%) (Auto) 35 % (24-48) Monocytes (%) (Auto) 6 % (0-9) Eosinophils (%) (Auto) 1 % (0-3) Basophils (%) (Auto) 1 % (0-3) Neutrophils # (Auto) 4.3 x10^3uL (1.8-7.7) Lymphocytes # (Auto) 2.6 x10^3/uL (1.0-4.8) Monocytes # (Auto) 0.4 x10^3/uL (0.0-1.1) Eosinophils # (Auto) 0.1 x10^3/uL (0.0-0.7) Basophils # (Auto) 0.0 x10^3/uL (0.0-0.2) Sodium Level 140 mmol/L (136-145) Potassium Level 3.7 mmol/L (3.5-5.1) Chloride Level 103 mmol/L (98-107) Carbon Dioxide Level 27 mmol/L (21-32) Anion Gap 10 (6-14) Blood Urea Nitrogen 26 mg/dL (7-20) Creatinine 0.8 mg/dL (0.6-1.0) Estimated GFR (Cockcroft-Gault) 74.5 BUN/Creatinine Ratio 33 (6-20) Glucose Level 105 mg/dL (70-99) Calcium Level 9.1 mg/dL (8.5-10.1) Total Bilirubin 0.7 mg/dL (0.2-1.0) Aspartate Amino Transf (AST/SGOT) 18 U/L (15-37) Alanine Aminotransferase (ALT/SGPT) 27 U/L (14-59) Alkaline Phosphatase 147 U/L (46-116) Total Protein 7.2 g/dL (6.4-8.2) Albumin 3.6 g/dL (3.4-5.0) Albumin/Globulin Ratio 1.0 (1.0-1.7) Medications Current Medications Nicardipine HCl 50 mg/Sodium Chloride 270 ml @ 0 mls/hr CONT PRN IV SEE I/O RECORD; Start 10/21/16 at 04:30 Amlodipine Besylate (Norvasc) 10 mg 1X ONCE PO Last administered on 10/21/16 08:20; Start 10/21/16 at 07:00; Stop 10/21/16 at 10:57; Status DC Lisinopril (Prinivil) 10 mg 1X ONCE PO ; Start 10/21/16 at 07:00; Stop at 07:03; Status DC Ondansetron HCl (Zofran) 4 mg PRN Q8HRS PRN IV NAUSEA/VOMITING Last administered on 10/21/16 08:20; Start 10/21/16 at 08:00 Acetaminophen (Tylenol) 650 mg PRN Q8HRS PRN PO HEADACHE Last administered on 08:35; Start 10/21/16 at 08:00 Acetaminophen/ Butalbital/ Caffeine (Fioricet) 1 tab PRN Q6HRS PRN PO MIGRAINE HEADACHE Last administered on 10/21/16 08:19; Start 10/21/16 at 08:00 Losartan Potassium (Cozaar) 25 mg DAILY PO ; Start 10/21/16 at 10:30; Stop 10/21 at 12:07; Status DC Amlodipine Besylate (Norvasc) 10 mg DAILY PO ; Start 10/22/16 at 09:00; Stop 10/22 at 09:00; Status DC Propranolol HCl (Inderal) 40 mg DAILY PO Last administered on 10/22/16 08:35; Start 10/21/16 at 11:30 Aspirin (Children'S Aspirin) 81 mg DAILYWBKFT PO Last administered on 10/22/16 08:34; Start 10/21/16 at 11:30 Hydrochlorothiazide (Hydrodiuril) 25 mg DAILY PO Last administered on 10/22/16 08:35; Start 10/22/16 at 09:00 Amlodipine Besylate (Norvasc) 10 mg DAILY PO Last administered on 10/22/16 08: 35; Start 10/22/16 at 09:00 Dextrose (Dextrose 50%-Water Syringe) 12.5 gm PRN Q15MIN PRN IV SEE COMMENTS; Start 10/21/16 at 16:30 Vitals/I & O Vital Sign - Last 24 Hours 10/21/16 10/21/16 10/21/16 10/21/16 15:00 19:27 19:36 23:12 Temp 98.0 98.9 98.1 98.0 98.9 98.1 Pulse 59 62 65 Resp 18 22 18 B/P (MAP) 124/58 (80) 152/61 (91) 118/82 (94) Pulse Ox 95 94 93 O2 Delivery Room Air Room Air Room Air Room Air 10/22/16 10/22/16 10/22/16 10/22/16 03:05 07:00 07:54 08:35 Temp 97.7 97.4 97.7 97.4 Pulse 70 70 70 Resp 18 16 B/P (MAP) 132/66 (88) 138/76 (96) 138/76 Pulse Ox 96 94 O2 Delivery Room Air Room Air Room Air 10/22/16 10/22/16 08:35 11:00 Temp 97.7 97.7 Pulse 70 53 Resp 16 B/P (MAP) 138/76 121/66 (84) Pulse Ox 94 O2 Delivery Room Air Intake and Output 10/21/16 10/21/16 10/22/16 15:00 23:00 07:00 Intake Total 475 ml 550 ml Output Total 670 ml Balance -195 ml 550 ml Images MRI brain: FINDINGS: There is generalized parenchymal atrophy. Patchy, confluent and multiple focal areas of abnormally increased signal intensity are seen scattered throughout the periventricular and subcortical white matter of both cerebral hemispheres on the FLAIR and T2-weighted images. These have a nonspecific MRI appearance and could reflect areas of small vessel ischemic disease, can be seen in the setting a demyelinating disorder such as multiple sclerosis, or can be seen in patients with history of migraine headaches. No definite acute parenchymal abnormality is seen. There is no MRI evidence of acute ischemia/infarction. No extra-axial fluid collection is noted. Mild mucosal thickening is seen scattered throughout the paranasal sinuses. Normal flow voids are seen within the major vascular structures surrounding the brain parenchyma. IMPRESSION: 1. Atrophy. 2. Areas of abnormally increased signal intensity are seen throughout the white matter of both cerebral hemispheres on the FLAIR and T2-weighted images. These have a nonspecific MRI appearance as outlined above. 3. No acute parenchymal abnormality is seen. Echo: LEFT VENTRICLE The left ventricle is normal size. There is normal left ventricular wall thickness. The left ventricular systolic function is normal and the ejection fraction is within normal range. The Ejection Fraction is 50%. Abnormal septal wall motion is noted. There is mild hypokinesis in the basal and mid anteroseptal wall as well as the mid to distal anterior wall. Transmitral Doppler flow pattern is Grade I-abnormal relaxation pattern. RIGHT VENTRICLE The right ventricle is normal size. There is normal right ventricular wall thickness. The right ventricular systolic function is normal. ATRIA The left atrium size is normal. The right atrium size is normal. The interatrial septum is intact with no evidence for an atrial septal defect or patent foramen ovale as noted on 2-D or Doppler imaging. Suboptimal agitated saline study did not reveal any right to left shunt. AORTIC VALVE The aortic valve is mildly sclerotic. The aortic valve is trileaflet. Doppler and Color Flow revealed no significant aortic regurgitation. There is no significant aortic valvular stenosis. MITRAL VALVE Mitral annular calcification is mild. The mitral valve leaflets are thickened. There is no evidence of mitral valve prolapse. There is no mitral valve stenosis. Doppler and Color Flow revealed no mitral valve regurgitation noted. TRICUSPID VALVE Doppler and Color Flow revealed no tricuspid valve regurgitation noted. Unable to determine pulmonary artery pressure at exam time. PULMONIC VALVE Doppler and Color Flow revealed mild pulmonic valvular regurgitation. There is no pulmonic valvular stenosis. GREAT VESSELS The aortic root is normal in size. The ascending aorta is normal in size. The pulmonary artery is normal. The IVC is normal in size and collapses >50% with inspiration. PERICARDIAL EFFUSION There is no evidence of significant pericardial effusion. Critical Notification Critical Value: No <Conclusion> The left ventricular systolic function is normal and the ejection fraction is within normal range. The Ejection Fraction is 50%. Abnormal septal wall motion is noted. There is mild hypokinesis in the basal and mid anteroseptal wall as well as the mid to distal anterior wall. The interatrial septum is intact with no evidence for an atrial septal defect or patent foramen ovale as noted on 2-D or Doppler imaging. Suboptimal agitated saline study did not reveal any right to left shunt. AYAAN CINTRON MD Oct 22, 2016 13:58
--- NOTE | 2016-10-22 14:05 | PDOC ---
PROGRESS NOTES Chief Complaint Chief Complaint Hypertensive urgency. ASSESSMENT AND PLAN: 1. HTN urgency: resoled. BP well controlled on oral regimen with Norvasc, HCTZ, propranolol. 2. Troponin leak with abn echo: plan for cath on Mon 3. Neurol sx: resolved. appreciate Dr Murdock's input. MR with small vessel dz c/w HTN 4. DM: hx by daughter's report. BG good here. awaiting HgbA1c 5. Hyperlipidemia: minimal. consider statin pending cath 5. Prophylaxis: lovenox Vitals Vitals Vital Signs Date Time Temp Pulse Resp B/P (MAP) Pulse Ox O2 Delivery O2 Flow Rate FiO2 10/22/16 11:00 97.7 53 16 121/66 (84) 94 Room Air 97.7 Physical Exam General: Alert, Oriented X3, Cooperative, No acute distress Heart: Regular rate Lungs: Clear Abdomen: Normal bowel sounds Extremities: No edema Skin: No rashes Labs LABS Laboratory Tests Test 10/22/16 04:15 White Blood Count 7.5 x10^3/uL (4.0-11.0) Red Blood Count 5.07 x10^6/uL (3.50-5.40) Hemoglobin 14.6 g/dL (12.0-15.5) Hematocrit 42.6 % (36.0-47.0) Mean Corpuscular Volume 84 fL (79-100) Mean Corpuscular Hemoglobin 29 pg (25-35) Mean Corpuscular Hemoglobin Concent 34 g/dL (31-37) Red Cell Distribution Width 15.3 % (11.5-14.5) Platelet Count 294 x10^3/uL (140-400) Neutrophils (%) (Auto) 57 % (31-73) Lymphocytes (%) (Auto) 35 % (24-48) Monocytes (%) (Auto) 6 % (0-9) Eosinophils (%) (Auto) 1 % (0-3) Basophils (%) (Auto) 1 % (0-3) Neutrophils # (Auto) 4.3 x10^3uL (1.8-7.7) Lymphocytes # (Auto) 2.6 x10^3/uL (1.0-4.8) Monocytes # (Auto) 0.4 x10^3/uL (0.0-1.1) Eosinophils # (Auto) 0.1 x10^3/uL (0.0-0.7) Basophils # (Auto) 0.0 x10^3/uL (0.0-0.2) Sodium Level 140 mmol/L (136-145) Potassium Level 3.7 mmol/L (3.5-5.1) Chloride Level 103 mmol/L (98-107) Carbon Dioxide Level 27 mmol/L (21-32) Anion Gap 10 (6-14) Blood Urea Nitrogen 26 mg/dL (7-20) Creatinine 0.8 mg/dL (0.6-1.0) Estimated GFR (Cockcroft-Gault) 74.5 BUN/Creatinine Ratio 33 (6-20) Glucose Level 105 mg/dL (70-99) Calcium Level 9.1 mg/dL (8.5-10.1) Total Bilirubin 0.7 mg/dL (0.2-1.0) Aspartate Amino Transf (AST/SGOT) 18 U/L (15-37) Alanine Aminotransferase (ALT/SGPT) 27 U/L (14-59) Alkaline Phosphatase 147 U/L (46-116) Total Protein 7.2 g/dL (6.4-8.2) Albumin 3.6 g/dL (3.4-5.0) Albumin/Globulin Ratio 1.0 (1.0-1.7) Comment Review of Relevant I have reviewed the following items pedro luis (where applicable) has been applied. Labs Laboratory Tests Test 10/21/16 06:16 10/21/16 11:10 10/22/16 04:15 White Blood Count 8.8 x10^3/uL (4.0-11.0) 7.5 x10^3/uL (4.0-11.0) Red Blood Count 4.87 x10^6/uL (3.50-5.40) 5.07 x10^6/uL (3.50-5.40) Hemoglobin 13.8 g/dL (12.0-15.5) 14.6 g/dL (12.0-15.5) Hematocrit 40.5 % (36.0-47.0) 42.6 % (36.0-47.0) Mean Corpuscular Volume 83 fL (79-100) 84 fL (79-100) Mean Corpuscular Hemoglobin 28 pg (25-35) 29 pg (25-35) Mean Corpuscular Hemoglobin Concent 34 g/dL (31-37) 34 g/dL (31-37) Red Cell Distribution Width 14.8 % (11.5-14.5) 15.3 % (11.5-14.5) Platelet Count 281 x10^3/uL (140-400) 294 x10^3/uL (140-400) Sodium Level 140 mmol/L (136-145) 140 mmol/L (136-145) Potassium Level 3.7 mmol/L (3.5-5.1) 3.7 mmol/L (3.5-5.1) Chloride Level 105 mmol/L (98-107) 103 mmol/L (98-107) Carbon Dioxide Level 27 mmol/L (21-32) 27 mmol/L (21-32) Anion Gap 8 (6-14) 10 (6-14) Blood Urea Nitrogen 13 mg/dL (7-20) 26 mg/dL (7-20) Creatinine 0.5 mg/dL (0.6-1.0) 0.8 mg/dL (0.6-1.0) Estimated GFR (Cockcroft-Gault) 128.1 74.5 Glucose Level 106 mg/dL (70-99) 105 mg/dL (70-99) Calcium Level 9.3 mg/dL (8.5-10.1) 9.1 mg/dL (8.5-10.1) Troponin I Quantitative 0.317 ng/mL (0.000-0.055) 0.126 ng/mL (0.000-0.055) Triglycerides Level 50 mg/dL (0-150) Cholesterol Level 186 mg/dL (0-200) LDL Cholesterol, Calculated 123 mg/dL (0-100) VLDL Cholesterol, Calculated 10 mg/dL (0-40) Non-HDL Cholesterol Calculated 133 mg/dL (0-129) HDL Cholesterol 53 mg/dL (40-60) Cholesterol/HDL Ratio 3.5 Neutrophils (%) (Auto) 57 % (31-73) Lymphocytes (%) (Auto) 35 % (24-48) Monocytes (%) (Auto) 6 % (0-9) Eosinophils (%) (Auto) 1 % (0-3) Basophils (%) (Auto) 1 % (0-3) Neutrophils # (Auto) 4.3 x10^3uL (1.8-7.7) Lymphocytes # (Auto) 2.6 x10^3/uL (1.0-4.8) Monocytes # (Auto) 0.4 x10^3/uL (0.0-1.1) Eosinophils # (Auto) 0.1 x10^3/uL (0.0-0.7) Basophils # (Auto) 0.0 x10^3/uL (0.0-0.2) BUN/Creatinine Ratio 33 (6-20) Total Bilirubin 0.7 mg/dL (0.2-1.0) Aspartate Amino Transf (AST/SGOT) 18 U/L (15-37) Alanine Aminotransferase (ALT/SGPT) 27 U/L (14-59) Alkaline Phosphatase 147 U/L (46-116) Total Protein 7.2 g/dL (6.4-8.2) Albumin 3.6 g/dL (3.4-5.0) Albumin/Globulin Ratio 1.0 (1.0-1.7) Laboratory Tests Test 10/22/16 04:15 White Blood Count 7.5 x10^3/uL (4.0-11.0) Red Blood Count 5.07 x10^6/uL (3.50-5.40) Hemoglobin 14.6 g/dL (12.0-15.5) Hematocrit 42.6 % (36.0-47.0) Mean Corpuscular Volume 84 fL (79-100) Mean Corpuscular Hemoglobin 29 pg (25-35) Mean Corpuscular Hemoglobin Concent 34 g/dL (31-37) Red Cell Distribution Width 15.3 % (11.5-14.5) Platelet Count 294 x10^3/uL (140-400) Neutrophils (%) (Auto) 57 % (31-73) Lymphocytes (%) (Auto) 35 % (24-48) Monocytes (%) (Auto) 6 % (0-9) Eosinophils (%) (Auto) 1 % (0-3) Basophils (%) (Auto) 1 % (0-3) Neutrophils # (Auto) 4.3 x10^3uL (1.8-7.7) Lymphocytes # (Auto) 2.6 x10^3/uL (1.0-4.8) Monocytes # (Auto) 0.4 x10^3/uL (0.0-1.1) Eosinophils # (Auto) 0.1 x10^3/uL (0.0-0.7) Basophils # (Auto) 0.0 x10^3/uL (0.0-0.2) Sodium Level 140 mmol/L (136-145) Potassium Level 3.7 mmol/L (3.5-5.1) Chloride Level 103 mmol/L (98-107) Carbon Dioxide Level 27 mmol/L (21-32) Anion Gap 10 (6-14) Blood Urea Nitrogen 26 mg/dL (7-20) Creatinine 0.8 mg/dL (0.6-1.0) Estimated GFR (Cockcroft-Gault) 74.5 BUN/Creatinine Ratio 33 (6-20) Glucose Level 105 mg/dL (70-99) Calcium Level 9.1 mg/dL (8.5-10.1) Total Bilirubin 0.7 mg/dL (0.2-1.0) Aspartate Amino Transf (AST/SGOT) 18 U/L (15-37) Alanine Aminotransferase (ALT/SGPT) 27 U/L (14-59) Alkaline Phosphatase 147 U/L (46-116) Total Protein 7.2 g/dL (6.4-8.2) Albumin 3.6 g/dL (3.4-5.0) Albumin/Globulin Ratio 1.0 (1.0-1.7) Medications Current Medications Nicardipine HCl 50 mg/Sodium Chloride 270 ml @ 0 mls/hr CONT PRN IV SEE I/O RECORD; Start 10/21/16 at 04:30 Amlodipine Besylate (Norvasc) 10 mg 1X ONCE PO Last administered on 10/21/16 08:20; Start 10/21/16 at 07:00; Stop 10/21/16 at 10:57; Status DC Lisinopril (Prinivil) 10 mg 1X ONCE PO ; Start 10/21/16 at 07:00; Stop at 07:03; Status DC Ondansetron HCl (Zofran) 4 mg PRN Q8HRS PRN IV NAUSEA/VOMITING Last administered on 10/21/16 08:20; Start 10/21/16 at 08:00 Acetaminophen (Tylenol) 650 mg PRN Q8HRS PRN PO HEADACHE Last administered on 08:35; Start 10/21/16 at 08:00 Acetaminophen/ Butalbital/ Caffeine (Fioricet) 1 tab PRN Q6HRS PRN PO MIGRAINE HEADACHE Last administered on 10/21/16 08:19; Start 10/21/16 at 08:00 Losartan Potassium (Cozaar) 25 mg DAILY PO ; Start 10/21/16 at 10:30; Stop 10/21 at 12:07; Status DC Amlodipine Besylate (Norvasc) 10 mg DAILY PO ; Start 10/22/16 at 09:00; Stop 10/22 at 09:00; Status DC Propranolol HCl (Inderal) 40 mg DAILY PO Last administered on 10/22/16 08:35; Start 10/21/16 at 11:30 Aspirin (Children'S Aspirin) 81 mg DAILYWBKFT PO Last administered on 10/22/16 08:34; Start 10/21/16 at 11:30 Hydrochlorothiazide (Hydrodiuril) 25 mg DAILY PO Last administered on 10/22/16 08:35; Start 10/22/16 at 09:00 Amlodipine Besylate (Norvasc) 10 mg DAILY PO Last administered on 10/22/16 08: 35; Start 10/22/16 at 09:00 Dextrose (Dextrose 50%-Water Syringe) 12.5 gm PRN Q15MIN PRN IV SEE COMMENTS; Start 10/21/16 at 16:30 Vitals/I & O Vital Sign - Last 24 Hours 10/21/16 10/21/16 10/21/16 10/21/16 15:00 19:27 19:36 23:12 Temp 98.0 98.9 98.1 98.0 98.9 98.1 Pulse 59 62 65 Resp 18 22 18 B/P (MAP) 124/58 (80) 152/61 (91) 118/82 (94) Pulse Ox 95 94 93 O2 Delivery Room Air Room Air Room Air Room Air 10/22/16 10/22/16 10/22/16 10/22/16 03:05 07:00 07:54 08:35 Temp 97.7 97.4 97.7 97.4 Pulse 70 70 70 Resp 18 16 B/P (MAP) 132/66 (88) 138/76 (96) 138/76 Pulse Ox 96 94 O2 Delivery Room Air Room Air Room Air 10/22/16 10/22/16 08:35 11:00 Temp 97.7 97.7 Pulse 70 53 Resp 16 B/P (MAP) 138/76 121/66 (84) Pulse Ox 94 O2 Delivery Room Air Intake and Output 10/21/16 10/21/16 10/22/16 14:59 22:59 06:59 Intake Total 475 ml 550 ml Output Total 670 ml Balance -195 ml 550 ml ELISE DASILVA MD Oct 22, 2016 14:05
[2016-10-22 15:00] VITALS: BP 118/48
[2016-10-22] MEDS: ENOXAPARIN 40 MG/0.4 ML SYRINGE. SQ SCH (18:07)
[2016-10-22 19:32] VITALS: BP 128/60
[2016-10-22 23:44] VITALS: BP 136/55
[2016-10-23 03:40] VITALS: BP 139/61
[2016-10-23 07:00] VITALS: BP 150/63
[2016-10-23] MEDS: amLODIPine BESYLATE 10 MG TABLET PO SCH (08:39)
[2016-10-23] MEDS: hydroCHLOROthiazide 25 MG TABLET PO SCH (08:39)
[2016-10-23] MEDS: PROPRANOLOL 40 MG TABLET. PO SCH (08:39)
[2016-10-23] MEDS: ASPIRIN CHEWABLE 81 MG TABLET. PO SCH (08:39)
--- NOTE | 2016-10-23 09:39 | PDOC ---
PROGRESS NOTES Chief Complaint Chief Complaint Hypertensive urgency. ASSESSMENT AND PLAN: 1. HTN urgency: resoled. BP well controlled on oral regimen with Norvasc, HCTZ, propranolol. 2. Troponin leak with abn echo: plan for cath on Mon 3. Neurol sx: resolved. appreciate Dr Murdock's input. MR with small vessel dz c/w HTN 4. DM: hx by daughter's report. BG good here. awaiting HgbA1c 5. Hyperlipidemia: minimal. consider statin pending cath 5. Prophylaxis: lovenox History of Present Illness History of Present Illness doing well. no respir or neurol sx. nbo CP Vitals Vitals Vital Signs Date Time Temp Pulse Resp B/P (MAP) Pulse Ox O2 Delivery O2 Flow Rate FiO2 10/23/16 08:39 70 150/63 10/23/16 08:00 Room Air 10/23/16 07:00 97.8 16 95 97.8 Physical Exam General: Alert, Oriented X3, Cooperative, No acute distress Heart: Regular rate Lungs: Clear Abdomen: Normal bowel sounds Extremities: No edema Skin: No rashes ELISE DASILVA MD Oct 23, 2016 09:39
[2016-10-23 11:00] VITALS: BP 129/59
--- NOTE | 2016-10-23 14:11 | PDOC ---
PROGRESS NOTES Subjective Subjective The patient looks and feels well today. Objective Objective Vital Signs Date Time Temp Pulse Resp B/P (MAP) Pulse Ox O2 Delivery O2 Flow Rate FiO2 10/23/16 11:00 97.7 56 16 129/59 (82) 98 Room Air 97.7 Intake and Output 10/23/16 07:00 Intake Total 760 ml Output Total 0 ml Balance 760 ml Intake Oral 760 ml Output Urine Total 0 ml # Voids 2 Physical Exam Abdomen: Normal bowel sounds Heart: Regular rate General: No acute distress Lungs: Clear to auscultation Assessment Assessment ASSESSMENT/PLAN Hypertensive emergency. Blood pressure under control today. Continue medications. Obesity and likely sleep apnea. Continue medications. Echocardiogram demonstrates mild anterior wall abnormality. She has elevated biomarkers in the setting of systolic blood pressure greater than 200. Discussion regarding cardiac catheterization as per yesterday's cardiology note. We'll continue present medications and plan on cardiac catheterization Monday. Comment Review of Relevant I have reviewed the following items pedro luis (where applicable) has been applied. Labs Laboratory Tests Test 10/22/16 04:15 White Blood Count 7.5 x10^3/uL (4.0-11.0) Red Blood Count 5.07 x10^6/uL (3.50-5.40) Hemoglobin 14.6 g/dL (12.0-15.5) Hematocrit 42.6 % (36.0-47.0) Mean Corpuscular Volume 84 fL (79-100) Mean Corpuscular Hemoglobin 29 pg (25-35) Mean Corpuscular Hemoglobin Concent 34 g/dL (31-37) Red Cell Distribution Width 15.3 % (11.5-14.5) Platelet Count 294 x10^3/uL (140-400) Neutrophils (%) (Auto) 57 % (31-73) Lymphocytes (%) (Auto) 35 % (24-48) Monocytes (%) (Auto) 6 % (0-9) Eosinophils (%) (Auto) 1 % (0-3) Basophils (%) (Auto) 1 % (0-3) Neutrophils # (Auto) 4.3 x10^3uL (1.8-7.7) Lymphocytes # (Auto) 2.6 x10^3/uL (1.0-4.8) Monocytes # (Auto) 0.4 x10^3/uL (0.0-1.1) Eosinophils # (Auto) 0.1 x10^3/uL (0.0-0.7) Basophils # (Auto) 0.0 x10^3/uL (0.0-0.2) Sodium Level 140 mmol/L (136-145) Potassium Level 3.7 mmol/L (3.5-5.1) Chloride Level 103 mmol/L (98-107) Carbon Dioxide Level 27 mmol/L (21-32) Anion Gap 10 (6-14) Blood Urea Nitrogen 26 mg/dL (7-20) Creatinine 0.8 mg/dL (0.6-1.0) Estimated GFR (Cockcroft-Gault) 74.5 BUN/Creatinine Ratio 33 (6-20) Glucose Level 105 mg/dL (70-99) Hemoglobin A1c 5.2 % (4.8-5.6) Calcium Level 9.1 mg/dL (8.5-10.1) Total Bilirubin 0.7 mg/dL (0.2-1.0) Aspartate Amino Transf (AST/SGOT) 18 U/L (15-37) Alanine Aminotransferase (ALT/SGPT) 27 U/L (14-59) Alkaline Phosphatase 147 U/L (46-116) Total Protein 7.2 g/dL (6.4-8.2) Albumin 3.6 g/dL (3.4-5.0) Albumin/Globulin Ratio 1.0 (1.0-1.7) Medications Current Medications Nicardipine HCl 50 mg/Sodium Chloride 270 ml @ 0 mls/hr CONT PRN IV SEE I/O RECORD; Start 10/21/16 at 04:30 Amlodipine Besylate (Norvasc) 10 mg 1X ONCE PO Last administered on 10/21/16 08:20; Start 10/21/16 at 07:00; Stop 10/21/16 at 10:57; Status DC Lisinopril (Prinivil) 10 mg 1X ONCE PO ; Start 10/21/16 at 07:00; Stop at 07:03; Status DC Ondansetron HCl (Zofran) 4 mg PRN Q8HRS PRN IV NAUSEA/VOMITING Last administered on 10/21/16 08:20; Start 10/21/16 at 08:00 Acetaminophen (Tylenol) 650 mg PRN Q8HRS PRN PO HEADACHE Last administered on 08:35; Start 10/21/16 at 08:00 Acetaminophen/ Butalbital/ Caffeine (Fioricet) 1 tab PRN Q6HRS PRN PO MIGRAINE HEADACHE Last administered on 10/21/16 08:19; Start 10/21/16 at 08:00 Losartan Potassium (Cozaar) 25 mg DAILY PO ; Start 10/21/16 at 10:30; Stop 10/21 at 12:07; Status DC Amlodipine Besylate (Norvasc) 10 mg DAILY PO ; Start 10/22/16 at 09:00; Stop 10/22 at 09:00; Status DC Propranolol HCl (Inderal) 40 mg DAILY PO Last administered on 10/23/16 08:39; Start 10/21/16 at 11:30 Aspirin (Children'S Aspirin) 81 mg DAILYWBKFT PO Last administered on 10/23/16 08:39; Start 10/21/16 at 11:30 Hydrochlorothiazide (Hydrodiuril) 25 mg DAILY PO Last administered on 10/23/16 08:39; Start 10/22/16 at 09:00 Amlodipine Besylate (Norvasc) 10 mg DAILY PO Last administered on 10/23/16 08: 39; Start 10/22/16 at 09:00 Dextrose (Dextrose 50%-Water Syringe) 12.5 gm PRN Q15MIN PRN IV SEE COMMENTS; Start 10/21/16 at 16:30 Enoxaparin Sodium (Lovenox 40mg Syringe) 40 mg Q24H SQ Last administered on 10/22 18:07; Start 10/22/16 at 18:00 Vitals/I & O Vital Sign - Last 24 Hours 10/22/16 10/22/16 10/22/16 10/22/16 15:00 19:32 20:00 23:44 Temp 97.8 98.1 98.6 97.8 98.1 98.6 Pulse 59 65 64 Resp 16 17 18 B/P (MAP) 118/48 (71) 128/60 (82) 136/55 (82) Pulse Ox 97 94 92 O2 Delivery Room Air Room Air Room Air Room Air 10/23/16 10/23/16 10/23/16/2/17 03:40 07:00 08:00 08:39 Temp 97.7 97.8 97.7 97.8 Pulse 66 62 71 Resp 18 16 B/P (MAP) 139/61 (87) 150/63 (92) 150/63 Pulse Ox 93 95 O2 Delivery Room Air Room Air Room Air 10/23/16 10/23/16 08:39 11:00 Temp 97.7 97.7 Pulse 70 56 Resp 16 B/P (MAP) 150/63 129/59 (82) Pulse Ox 98 O2 Delivery Room Air Intake and Output 10/22/16 10/22/16 10/23/16 15:00 23:00 07:00 Intake Total 500 ml 260 ml Output Total 0 ml Balance 500 ml 260 ml TIARRA CUNNINGHAM MD Oct 23, 2016 14:10
[2016-10-23 14:51] VITALS: BP 130/61
[2016-10-23] MEDS: ENOXAPARIN 40 MG/0.4 ML SYRINGE. SQ SCH (17:18)
[2016-10-23 19:00] VITALS: BP 146/64
[2016-10-23 22:40] VITALS: BP 141/61
[2016-10-24] VITALS (12 sets, daily range): BP systolic 101–149; BP diastolic 57–68
[2016-10-24] MEDS ORDERED: IV NORMAL SALINE 1000ML BAG 1,000 ML IV SCH (07:30)
[2016-10-24] MEDS: ASPIRIN CHEWABLE 81 MG TABLET. PO SCH (08:29)
[2016-10-24] MEDS: amLODIPine BESYLATE 10 MG TABLET PO SCH (08:30)
[2016-10-24] MEDS: PROPRANOLOL 40 MG TABLET. PO SCH (08:30)
[2016-10-24 08:42] LABS: CALCIUM 8.9 mg/dL (8.5-10.1); CREATININE 0.7 mg/dL (0.6-1.0); GFR 86.9; POTASSIUM 3.9 mmol/L (3.5-5.1)
[2016-10-24] MEDS ORDERED: NITROGLYCERIN 200 MCG/2 ML SYRINGE FOR CATH/VASC LAB. ONE (09:12)
[2016-10-24] MEDS ORDERED: fentaNYL PF VIAL 100 MCG/2 ML VIAL ONE (09:13)
[2016-10-24] MEDS ORDERED: HEPARIN for IV BOLUS 10,000 UNIT/10 ML VIAL. ONE (09:13)
[2016-10-24] MEDS ORDERED: MIDAZOLAM HCL/PF 2 MG/2 ML VIAL. ONE (09:13)
[2016-10-24] MEDS ORDERED: VERAPAMIL 5 MG/2 ML VIAL. ONE (09:13)
[2016-10-24] MEDS ORDERED: IOHEXOL 300 MG/ML 100ML VIAL. ONE (09:22)
[2016-10-24] MEDS ORDERED: LIDOCAINE 2% 20 ML VIAL. ONE (09:23)
[2016-10-24] MEDS ORDERED: IOHEXOL 300 MG/ML 100ML VIAL. IART ONE (09:30)
[2016-10-24] MEDS ORDERED: LIDOCAINE 2% 20 ML VIAL. IJ ONE (09:30)
[2016-10-24] MEDS ORDERED: NITROGLYCERIN 200 MCG/2 ML SYRINGE FOR CATH/VASC LAB. IART ONE (09:30)
[2016-10-24] MEDS ORDERED: CONTRAST GIVEN MC PRN (09:30)
[2016-10-24] MEDS ORDERED: VERAPAMIL 5 MG/2 ML VIAL. IART ONE (09:30)
[2016-10-24] MEDS ORDERED: fentaNYL PF VIAL 100 MCG/2 ML VIAL IV ONE (09:30)
[2016-10-24] MEDS ORDERED: HEPARIN for IV BOLUS 10,000 UNIT/10 ML VIAL. IART ONE (09:30)
[2016-10-24] MEDS ORDERED: MIDAZOLAM HCL/PF 2 MG/2 ML VIAL. IV ONE (09:30)
--- NOTE | 2016-10-24 10:02 | CARD ---
APPROVED REPORT Procedure(s) performed: Moderate Sedation Time:20 min Left heart catheterization, coronary angiography. HISTORY The patient is a 55 year-old female with a history of : hypertension. INDICATION The indication(s) include : non-STEMI . PROCEDURE NARRATIVE The patient was brought electively to the cardiac catheterization lab. A timeout was performed confi rming the patient's name, date of , procedure, and site of procedure. All necessary personnel w ere wearing the appropriate protective equipment and radiation monitor devices. After explaining the risks and benefits of the procedure and alternatives, informed consent was obtained. (See nursing no abraham for medications administered). The right wrist was sterilely prepped and draped in the usual fas hion. The right wrist was infiltrated with 1 mL of 2% lidocaine for subcutaneous anesthesia. A 6 Fr ench Terumo glide sheath was inserted into the right radial artery without difficulty. Right and lef t coronary angiography was performed using a 6Fr TIG 4.0 catheter. Left ventricular end diastolic pr essure was obtained with a pigtail catheter and pullback was performed after left ventriculography. All catheter exchanges and advancements were performed over a guidewire. At case completion the righ t radial sheath was removed and a Terumo radial band was applied with 13 ml of air. The patient tole rated the procedure well and there were no immediate complications. HEMODYNAMICS: LVEDP 18 mm Hg No gradient on LV to aortic pullback. LEFT VENTRICULOGRAM: Deferred due to normal echo. CORONARY ANGIOGRAPHY: LM is a large caliber vessel with normal angiographic appearance. LAD is a large caliber vessel with normal angiographic appearance. The distal/apical LAD is diminutiv e and the apex is mostly supplied by the RPDA and RV marginal branch. D1 is a moderate caliber vessel with normal angiographic apeparance. LCx is a moderate caliber non-dominant vessel with normal angiographic appearance. OM1 is a moderate caliber vessel with normal angiographic appearance. RCA is a large caliber dominant vessel with normal angiographic appearance. RPDA and RPL are moderate caliber vessels with normal angiographic appearance. Conclusion 1. Normal LVEDP. 2. Normal angiographic appearance of the coronary arteries. Recommendations Aggressive Medical Therapy
[2016-10-24] MEDS: hydroCHLOROthiazide 25 MG TABLET PO SCH (10:23)
--- NOTE | 2016-10-24 13:49 | PDOC ---
PROGRESS NOTES Assessment Neurological symptoms related to migraine without evidence of stroke. Hypertension also played a role Known demyelinative changes on the MRI due to migraines since age 9. Plan Okay for discharge Increase propanolol to twice a day Follow-up with me in 6 weeks. Subjective No complaints Objective Vital Signs Date Time Temp Pulse Resp B/P (MAP) Pulse Ox O2 Delivery O2 Flow Rate FiO2 10/24/16 10:50 98.0 57 16 127/61 (83) 94 Room Air 98.0 10/24/16 09:47 2.0 Intake and Output 10/24/16 06:59 Intake Total 2500 ml Balance 2500 ml Intake Oral 2500 ml # Voids 5 PHYSICAL EXAM Alert. Oriented to time, place and person. PERRL. EOMI. CN: no focal findings. Muscle tone: normal. Muscle strength: 5/5 DTR: 2+ Plantar reflex: Flexor Gait: not examined in bed. Sensory exam: no abnormal findings. No cerebellar signs elicited. Review of Relevant I have reviewed the following items pedro luis (where applicable) has been applied. Labs Laboratory Tests Test 10/24/16 07:50 Sodium Level 141 mmol/L (136-145) Potassium Level 3.9 mmol/L (3.5-5.1) Chloride Level 104 mmol/L (98-107) Carbon Dioxide Level 28 mmol/L (21-32) Anion Gap 9 (6-14) Blood Urea Nitrogen 20 mg/dL (7-20) Creatinine 0.7 mg/dL (0.6-1.0) Estimated GFR (Cockcroft-Gault) 86.9 Glucose Level 102 mg/dL (70-99) Calcium Level 8.9 mg/dL (8.5-10.1) Magnesium Level 2.0 mg/dL (1.8-2.4) Laboratory Tests Test 10/24/16 07:50 Sodium Level 141 mmol/L (136-145) Potassium Level 3.9 mmol/L (3.5-5.1) Chloride Level 104 mmol/L (98-107) Carbon Dioxide Level 28 mmol/L (21-32) Anion Gap 9 (6-14) Blood Urea Nitrogen 20 mg/dL (7-20) Creatinine 0.7 mg/dL (0.6-1.0) Estimated GFR (Cockcroft-Gault) 86.9 Glucose Level 102 mg/dL (70-99) Calcium Level 8.9 mg/dL (8.5-10.1) Magnesium Level 2.0 mg/dL (1.8-2.4) Medications Current Medications Nicardipine HCl 50 mg/Sodium Chloride 270 ml @ 0 mls/hr CONT PRN IV SEE I/O RECORD; Start 10/21/16 at 04:30 Amlodipine Besylate (Norvasc) 10 mg 1X ONCE PO Last administered on 10/21/16 08:20; Start 10/21/16 at 07:00; Stop 10/21/16 at 10:57; Status DC Lisinopril (Prinivil) 10 mg 1X ONCE PO ; Start 10/21/16 at 07:00; Stop at 07:03; Status DC Ondansetron HCl (Zofran) 4 mg PRN Q8HRS PRN IV NAUSEA/VOMITING Last administered on 10/21/16 08:20; Start 10/21/16 at 08:00 Acetaminophen (Tylenol) 650 mg PRN Q8HRS PRN PO HEADACHE Last administered on 08:35; Start 10/21/16 at 08:00 Acetaminophen/ Butalbital/ Caffeine (Fioricet) 1 tab PRN Q6HRS PRN PO MIGRAINE HEADACHE Last administered on 10/21/16 08:19; Start 10/21/16 at 08:00 Losartan Potassium (Cozaar) 25 mg DAILY PO ; Start 10/21/16 at 10:30; Stop 10/21 at 12:07; Status DC Amlodipine Besylate (Norvasc) 10 mg DAILY PO ; Start 10/22/16 at 09:00; Stop 10/22 at 09:00; Status DC Propranolol HCl (Inderal) 40 mg DAILY PO Last administered on 10/24/16 08:30; Start 10/21/16 at 11:30 Aspirin (Children'S Aspirin) 81 mg DAILYWBKFT PO Last administered on 10/24/16 08:29; Start 10/21/16 at 11:30 Hydrochlorothiazide (Hydrodiuril) 25 mg DAILY PO Last administered on 10/24/16 10:23; Start 10/22/16 at 09:00 Amlodipine Besylate (Norvasc) 10 mg DAILY PO Last administered on 10/24/16 08: 30; Start 10/22/16 at 09:00 Dextrose (Dextrose 50%-Water Syringe) 12.5 gm PRN Q15MIN PRN IV SEE COMMENTS; Start 10/21/16 at 16:30 Enoxaparin Sodium (Lovenox 40mg Syringe) 40 mg Q24H SQ Last administered on 10/23 17:18; Start 10/22/16 at 18:00 Sodium Chloride 1,000 ml @ 75 mls/hr [id number] IV Last administered on 10/24/16 10:24; Start 10/24/16 at 07:30 Nitroglycerin (Nitroglycerin) 200 mcg STK-MED ONCE .ROUTE ; Start 10/24/16 at 09: 12; Stop 10/24/16 at 09:13; Status DC Verapamil HCl (Verapamil) 5 mg STK-MED ONCE .ROUTE ; Start 10/24/16 at 09:13; Stop 10/24/16 at 09:14; Status DC Heparin Sodium (Porcine) (Heparin Sodium) 10,000 unit STK-MED ONCE .ROUTE ; Start 10/24/16 at 09:13; Stop 10/24/16 at 09:14; Status DC Fentanyl Citrate (Fentanyl 2ml Vial) 100 mcg STK-MED ONCE .ROUTE ; Start at 09:13; Stop 10/24/16 at 09:14; Status DC Midazolam HCl (Versed) 2 mg STK-MED ONCE .ROUTE ; Start 10/24/16 at 09:13; Stop 10/24/16 at 09:14; Status DC Iohexol (Omnipaque 300 Mg/ml) 100 ml STK-MED ONCE .ROUTE ; Start 10/24/16 at 09: 22; Stop 10/24/16 at 09:23; Status DC Heparin Sodium/ Sodium Chloride 1,000 ml @ As Directed STK-MED ONCE .ROUTE ; Start 10/24/16 at 09:22; Stop 10/24/16 at 09:23; Status DC Lidocaine HCl 20 ml STK-MED ONCE .ROUTE ; Start 10/24/16 at 09:23; Stop 10/24/16 at 09:24; Status DC Nitroglycerin (Nitroglycerin) 200 mcg 1X ONCE IART Last administered on 09:41; Start 10/24/16 at 09:30; Stop 10/24/16 at 09:31; Status DC Verapamil HCl (Verapamil) 2.5 mg 1X ONCE IART Last administered on 10/24/16 09 :41; Start 10/24/16 at 09:30; Stop 10/24/16 at 09:31; Status DC Heparin Sodium (Porcine) (Heparin Sodium) 2,500 unit 1X ONCE IART Last administered on 10/24/16 09:49; Start 10/24/16 at 09:30; Stop 10/24/16 at 09:31; Status DC Heparin Sodium/ Sodium Chloride 1,000 unit 1X ONCE IART Last administered on 09:40; Start 10/24/16 at 09:30; Stop 10/24/16 at 09:31; Status DC Heparin Sodium/ Sodium Chloride 1,000 unit 1X ONCE IART Last administered on 09:40; Start 10/24/16 at 09:30; Stop 10/24/16 at 09:31; Status DC Midazolam HCl (Versed) 2 mg 1X ONCE IV Last administered on 10/24/16 09:44; Start 10/24/16 at 09:30; Stop 10/24/16 at 09:31; Status DC Fentanyl Citrate (Fentanyl 2ml Vial) 100 mcg 1X ONCE IV Last administered on 09:45; Start 10/24/16 at 09:30; Stop 10/24/16 at 09:31; Status DC Iohexol (Omnipaque 300 Mg/ml) 100 ml 1X ONCE IART Last administered on 09:45; Start 10/24/16 at 09:30; Stop 10/24/16 at 09:31; Status DC Lidocaine HCl 20 ml 1X ONCE IJ Last administered on 10/24/16 09:40; Start 10/24 at 09:30; Stop 10/24/16 at 09:31; Status DC Info (Do NOT chart on this entry -- for MONITORING) 1 each PRN DAILY PRN MC SEE COMMENTS; Start 10/24/16 at 09:30; Stop 10/26/16 at 09:29 Vitals/I & O Vital Sign - Last 24 Hours 10/23/16 10/23/16 10/23/16 10/23/16 14:51 19:00 20:03 22:40 Temp 97.8 98.7 98.4 97.8 98.7 98.4 Pulse 61 64 64 Resp 18 18 18 B/P (MAP) 130/61 (84) 146/64 (91) 141/61 (87) Pulse Ox 95 92 93 O2 Delivery Room Air Room Air Room Air Room Air 10/24/16 10/24/16 10/24/16 10/24/16 03:15 07:00 07:55 08:30 Temp 97.9 98.6 97.9 98.6 Pulse 68 67 67 Resp 18 18 B/P (MAP) 124/64 (84) 149/60 (89) 149/60 Pulse Ox 93 94 O2 Delivery Room Air Room Air Room Air 10/24/16 10/24/16 10/24/16 10/24/16 08:30 09:41 09:45 09:47 Pulse 67 57 54 Resp 16 16 B/P (MAP) 149/60 110/85 Pulse Ox 99 94 O2 Delivery Nasal Cannula Nasal Cannula O2 Flow Rate 2.0 2.0 10/24/16 10/24/16 10:29 10:50 Temp 98.0 98.0 Pulse 57 Resp 16 B/P (MAP) 127/61 (83) Pulse Ox 94 O2 Delivery Room Air Room Air Intake and Output 10/23/16 10/23/16 10/24/16 14:59 22:59 06:59 Intake Total 780 ml 1240 ml 480 ml Balance 780 ml 1240 ml 480 ml AYAAN CINTRON MD Oct 24, 2016 13:49
--- NOTE | 2016-10-24 15:06 | PDOC ---
PROGRESS NOTES Chief Complaint Chief Complaint 1. HTN urgency 2. Troponin leak with abn echo 3. Neurology sx on admission 4. DM 5. Hyperlipidemia 6. Obesity, likely ERICA History of Present Illness History of Present Illness pt is sitting comfortably in her bed, she is about to undergo cardiac cath, she is a bit nervous about the procedure but no apparent distress, the safety and outcome of the procedure was discussed with her Vitals Vitals Vital Signs Date Time Temp Pulse Resp B/P (MAP) Pulse Ox O2 Delivery O2 Flow Rate FiO2 10/24/16 13:00 58 121/57 (78) 95 Room Air 10/24/16 10:50 98.0 16 98.0 10/24/16 09:47 2.0 Physical Exam General: Alert, Oriented X3, Cooperative, No acute distress Heart: Regular rate, No murmurs Lungs: Clear, Other (no wheezes or crackles) Abdomen: Normal bowel sounds, Soft Extremities: No clubbing, No cyanosis, No edema Skin: No rashes, No breakdown Labs LABS Laboratory Tests Test 10/24/16 07:50 Sodium Level 141 mmol/L (136-145) Potassium Level 3.9 mmol/L (3.5-5.1) Chloride Level 104 mmol/L (98-107) Carbon Dioxide Level 28 mmol/L (21-32) Anion Gap 9 (6-14) Blood Urea Nitrogen 20 mg/dL (7-20) Creatinine 0.7 mg/dL (0.6-1.0) Estimated GFR (Cockcroft-Gault) 86.9 Glucose Level 102 mg/dL (70-99) Calcium Level 8.9 mg/dL (8.5-10.1) Magnesium Level 2.0 mg/dL (1.8-2.4) Review of Systems Review of Systems generalized anxiety denies nausea, vomiting, diarrhea, or headache Assessment and Plan Assessmemt and Plan Plan: 1. HTN urgency 2. Troponin leak with abn echo 3. Neurology sx on admission 4. DM 5. Hyperlipidemia 6. Obesity, likely ERICA Assessment: 1. Cardiac cath normal per cardiology 2. Continue norvasc, HCTZ, propanolol 3. Appreciate cardiology and neurology subspecialty input 4. Recheck BMP and CBC tomorrow 5. Plan of care discussed with nursing 6. Lovenox of DVT ppx 7. PT/OT 8. Discharge disposition pending per cardiology Problems: Comment Review of Relevant I have reviewed the following items pedro luis (where applicable) has been applied. Labs Laboratory Tests Test 10/24/16 07:50 Sodium Level 141 mmol/L (136-145) Potassium Level 3.9 mmol/L (3.5-5.1) Chloride Level 104 mmol/L (98-107) Carbon Dioxide Level 28 mmol/L (21-32) Anion Gap 9 (6-14) Blood Urea Nitrogen 20 mg/dL (7-20) Creatinine 0.7 mg/dL (0.6-1.0) Estimated GFR (Cockcroft-Gault) 86.9 Glucose Level 102 mg/dL (70-99) Calcium Level 8.9 mg/dL (8.5-10.1) Magnesium Level 2.0 mg/dL (1.8-2.4) Laboratory Tests Test 10/24/16 07:50 Sodium Level 141 mmol/L (136-145) Potassium Level 3.9 mmol/L (3.5-5.1) Chloride Level 104 mmol/L (98-107) Carbon Dioxide Level 28 mmol/L (21-32) Anion Gap 9 (6-14) Blood Urea Nitrogen 20 mg/dL (7-20) Creatinine 0.7 mg/dL (0.6-1.0) Estimated GFR (Cockcroft-Gault) 86.9 Glucose Level 102 mg/dL (70-99) Calcium Level 8.9 mg/dL (8.5-10.1) Magnesium Level 2.0 mg/dL (1.8-2.4) Medications Current Medications Nicardipine HCl 50 mg/Sodium Chloride 270 ml @ 0 mls/hr CONT PRN IV SEE I/O RECORD; Start 10/21/16 at 04:30 Amlodipine Besylate (Norvasc) 10 mg 1X ONCE PO Last administered on 10/21/16 08:20; Start 10/21/16 at 07:00; Stop 10/21/16 at 10:57; Status DC Lisinopril (Prinivil) 10 mg 1X ONCE PO ; Start 10/21/16 at 07:00; Stop at 07:03; Status DC Ondansetron HCl (Zofran) 4 mg PRN Q8HRS PRN IV NAUSEA/VOMITING Last administered on 10/21/16 08:20; Start 10/21/16 at 08:00 Acetaminophen (Tylenol) 650 mg PRN Q8HRS PRN PO HEADACHE Last administered on 08:35; Start 10/21/16 at 08:00 Acetaminophen/ Butalbital/ Caffeine (Fioricet) 1 tab PRN Q6HRS PRN PO MIGRAINE HEADACHE Last administered on 10/21/16 08:19; Start 10/21/16 at 08:00 Losartan Potassium (Cozaar) 25 mg DAILY PO ; Start 10/21/16 at 10:30; Stop 10/21 at 12:07; Status DC Amlodipine Besylate (Norvasc) 10 mg DAILY PO ; Start 10/22/16 at 09:00; Stop 10/22 at 09:00; Status DC Propranolol HCl (Inderal) 40 mg DAILY PO Last administered on 10/24/16 08:30; Start 10/21/16 at 11:30; Stop 10/24/16 at 13:48; Status DC Aspirin (Children'S Aspirin) 81 mg [id number] PO Last administered on 10/24/16 08:29; Start 10/21/16 at 11:30 Hydrochlorothiazide (Hydrodiuril) 25 mg DAILY PO Last administered on 10/24/16 10:23; Start 10/22/16 at 09:00 Amlodipine Besylate (Norvasc) 10 mg DAILY PO Last administered on 10/24/16 08: 30; Start 10/22/16 at 09:00 Dextrose (Dextrose 50%-Water Syringe) 12.5 gm PRN Q15MIN PRN IV SEE COMMENTS; Start 10/21/16 at 16:30 Enoxaparin Sodium (Lovenox 40mg Syringe) 40 mg Q24H SQ Last administered on 10/23 17:18; Start 10/22/16 at 18:00 Sodium Chloride 1,000 ml @ 75 mls/hr [id number] IV Last administered on 10/24/16 10:24; Start 10/24/16 at 07:30 Nitroglycerin (Nitroglycerin) 200 mcg STK-MED ONCE .ROUTE ; Start 10/24/16 at 09: 12; Stop 10/24/16 at 09:13; Status DC Verapamil HCl (Verapamil) 5 mg STK-MED ONCE .ROUTE ; Start 10/24/16 at 09:13; Stop 10/24/16 at 09:14; Status DC Heparin Sodium (Porcine) (Heparin Sodium) 10,000 unit STK-MED ONCE .ROUTE ; Start 10/24/16 at 09:13; Stop 10/24/16 at 09:14; Status DC Fentanyl Citrate (Fentanyl 2ml Vial) 100 mcg STK-MED ONCE .ROUTE ; Start at 09:13; Stop 10/24/16 at 09:14; Status DC Midazolam HCl (Versed) 2 mg STK-MED ONCE .ROUTE ; Start 10/24/16 at 09:13; Stop 10/24/16 at 09:14; Status DC Iohexol (Omnipaque 300 Mg/ml) 100 ml STK-MED ONCE .ROUTE ; Start 10/24/16 at 09: 22; Stop 10/24/16 at 09:23; Status DC Heparin Sodium/ Sodium Chloride 1,000 ml @ As Directed STK-MED ONCE .ROUTE ; Start 10/24/16 at 09:22; Stop 10/24/16 at 09:23; Status DC Lidocaine HCl 20 ml STK-MED ONCE .ROUTE ; Start 10/24/16 at 09:23; Stop 10/24/16 at 09:24; Status DC Nitroglycerin (Nitroglycerin) 200 mcg 1X ONCE IART Last administered on 09:41; Start 10/24/16 at 09:30; Stop 10/24/16 at 09:31; Status DC Verapamil HCl (Verapamil) 2.5 mg 1X ONCE IART Last administered on 10/24/16 09 :41; Start 10/24/16 at 09:30; Stop 10/24/16 at 09:31; Status DC Heparin Sodium (Porcine) (Heparin Sodium) 2,500 unit 1X ONCE IART Last administered on 10/24/16 09:49; Start 10/24/16 at 09:30; Stop 10/24/16 at 09:31; Status DC Heparin Sodium/ Sodium Chloride 1,000 unit 1X ONCE IART Last administered on 09:40; Start 10/24/16 at 09:30; Stop 10/24/16 at 09:31; Status DC Heparin Sodium/ Sodium Chloride 1,000 unit 1X ONCE IART Last administered on 09:40; Start 10/24/16 at 09:30; Stop 10/24/16 at 09:31; Status DC Midazolam HCl (Versed) 2 mg 1X ONCE IV Last administered on 10/24/16 09:44; Start 10/24/16 at 09:30; Stop 10/24/16 at 09:31; Status DC Fentanyl Citrate (Fentanyl 2ml Vial) 100 mcg 1X ONCE IV Last administered on 09:45; Start 10/24/16 at 09:30; Stop 10/24/16 at 09:31; Status DC Iohexol (Omnipaque 300 Mg/ml) 100 ml 1X ONCE IART Last administered on 09:45; Start 10/24/16 at 09:30; Stop 10/24/16 at 09:31; Status DC Lidocaine HCl 20 ml 1X ONCE IJ Last administered on 10/24/16 09:40; Start 10/24 at 09:30; Stop 10/24/16 at 09:31; Status DC Info (Do NOT chart on this entry -- for MONITORING) 1 each PRN DAILY PRN MC SEE COMMENTS; Start 10/24/16 at 09:30; Stop 10/26/16 at 09:29 Propranolol HCl (Inderal) 40 mg BID PO ; Start 10/24/16 at 21:00 Vitals/I & O Vital Sign - Last 24 Hours 10/23/16 10/23/16 10/23/16 10/24/16 19:00 20:03 22:40 03:15 Temp 98.7 98.4 97.9 98.7 98.4 97.9 Pulse 64 64 68 Resp 18 18 18 B/P (MAP) 146/64 (91) 141/61 (87) 124/64 (84) Pulse Ox 92 93 93 O2 Delivery Room Air Room Air Room Air Room Air 10/24/16 10/24/16 10/24/16 10/24/16 07:00 07:55 08:30 08:30 Temp 98.6 98.6 Pulse 67 67 67 Resp 18 B/P (MAP) 149/60 (89) 149/60 149/60 Pulse Ox 94 O2 Delivery Room Air Room Air 10/24/16 10/24/16 10/24/163/17 09:41 09:45 09:47 10:15 Pulse 57 54 54 Resp 16 16 B/P (MAP) 110/85 136/68 (90) Pulse Ox 99 94 O2 Delivery Nasal Cannula Nasal Cannula Room Air O2 Flow Rate 2.0 2.0 10/24/16 10/24/16 10/24/16 10/24/16 10:29 10:30 10:45 10:50 Temp 98.0 98.0 Pulse 58 60 57 Resp 16 B/P (MAP) 126/57 (80) 127/61 (83) Pulse Ox 94 O2 Delivery Room Air Room Air Room Air Room Air 10/24/16 10/24/16 10/24/16 10/24/16 11:00 11:30 11:45 12:15 Pulse 56 56 56 56 B/P (MAP) 130/59 (82) 125/58 (80) 120/58 (78) 118/58 (78) Pulse Ox 94 94 95 94 O2 Delivery Room Air Room Air Room Air Room Air 10/24/16 13:00 Pulse 58 B/P (MAP) 121/57 (78) Pulse Ox 95 O2 Delivery Room Air Intake and Output 10/23/16 10/23/16 10/24/16 15:00 23:00 07:00 Intake Total 780 ml 1240 ml 480 ml Balance 780 ml 1240 ml 480 ml NAHOMY YEH III DO Oct 24, 2016 15:06
[2016-10-24] MEDS ORDERED: PROP40TA PO (15:07)
[2016-10-24] MEDS ORDERED: HYDR25TA9 PO (15:08)
[2016-10-24] MEDS ORDERED: AMLO10TA2 PO (15:08)
[2016-10-24] MEDS ORDERED: ASPI-482 PO ×2 (15:09→15:10)
[2016-10-24] MEDS ORDERED: PROPRANOLOL 40 MG TABLET. PO SCH (21:00)
== END 2016-10-24 16:30 | disposition home or self-care (01) | DRG 287 ==
LOC: 2 SOUTH 02:51
PROVIDERS: ADMIT Internal Medicine; ATTEND Internal Medicine
PROC: 4A023N7 Measurement of Cardiac Sampling and Pressure, Left Heart, Percutaneous Approach (ICD-10-PCS; principal; 2016-10-24)
PROC: B2111ZZ Fluoroscopy of Multiple Coronary Arteries using Low Osmolar Contrast (ICD-10-PCS; 2016-10-24)
PROC: B2151ZZ Fluoroscopy of Left Heart using Low Osmolar Contrast (ICD-10-PCS; 2016-10-24)
DX: I16.1 Hypertensive emergency (principal); Z68.41 Body mass index [BMI] 40.0-44.9, adult; E11.9 Type 2 diabetes mellitus without complications; E66.01 Morbid (severe) obesity due to excess calories; E78.5 Hyperlipidemia, unspecified; G43.909 Migraine, unspecified, not intractable, without status migrainosus; G47.33 Obstructive sleep apnea (adult) (pediatric); I10 Essential (primary) hypertension; M79.7 Fibromyalgia; Z82.0 Family history of epilepsy and other diseases of the nervous system; Z82.49 Family history of ischemic heart disease and other diseases of the circulatory system; Z83.3 Family history of diabetes mellitus; Z90.49 Acquired absence of other specified parts of digestive tract; Z98.51 Tubal ligation status; Z79.899 Other long term (current) drug therapy; Z88.8 Allergy status to other drugs, medicaments and biological substances
CPT/HCPCS: 93458; C8929; 36415; 70551; 80048; 80053; 80061; 83036; 83735; 84484; 85027; 93005; 93306; 93880; 99152; C1769; C1892; J1650; J2250; J2405; J3010; J3490; J7030; Q9967

== ENCOUNTER 2021-01-05 01:30 | Emergency (ER) | payer OTHER ==
[~2021-01-05] VITALS: Ht 152.4 cm; Wt 103.2 kg
[~2021-01-05 01:30] MED LIST: AMLO-187 PO; ASPI-482 PO; HYDR-2145 PO; PROP40TA PO
[2021-01-05] MEDS ORDERED: HYDR-2759 PO (02:02)
--- NOTE | 2021-01-05 02:02 | RAD ---
EXAMINATION: Right foot radiograph. VIEWS: 3 views COMPARISON: None INDICATION:60 years, Female, toe/foot pain. FINDINGS: No acute fracture, dislocation or subluxation. No bone erosion or periosteal reaction. There is diffu se soft tissue swelling/edema about the foot. IMPRESSION: No acute osseous process. Electronically signed by: Joaquín Diallo DO (01/05/2021 1:59 AM) [facility]
--- NOTE | 2021-01-05 02:06 | PHYS DOC ---
Past Medical History Additional Past Medical Histor: RA Past Surgical History: Cholecystectomy, Other Smoking Status: Never Smoker General Adult EDM: Chief Complaint: LOWER EXT PAIN HPI: HPI: Patient is a 60 year old male presents with a chief complaint of right foot pain. Patient's pain is located on the top of her foot patient has a past history of a fracture in April. Patient states pain has been present for the last 2 and half months but pain became significantly worse tonight. Patient states she was getting out of vehicle when sudden onset of pain that shot up to her knee. On exam there is no discoloration deformity or swelling noted. Patient self treated with ibuprofen. X-ray performed shows no acute fracture. Patient treated with hydrocodone in the department. She was discharged home with hydrocodone and referred to podiatry. Review of Systems: Review of Systems: Constitutional: Denies fever or chills. [] Eyes: Denies change in visual acuity. [] HENT: Denies nasal congestion or sore throat. [] Respiratory: Denies cough or shortness of breath. [] Cardiovascular: Denies chest pain or edema. [] GI: Denies abdominal pain, nausea, vomiting, bloody stools or diarrhea. [] : Denies dysuria. [] Musculoskeletal: Denies back pain Positive joint pain. [] Integument: Denies rash. [] Neurologic: Denies headache, focal weakness or sensory changes. [] Endocrine: Denies polyuria or polydipsia. [] Lymphatic: Denies swollen glands. [] Psychiatric: Denies depression or anxiety. [] Heart Score: C/O Chest Pain: N/A Risk Factors: Risk Factors: DM, Current or recent (<one month) smoker, HTN, HLP, family h istory of CAD, obesity. Risk Scores: Score 0 - 3: 2.5% MACE over next 6 weeks - Discharge Home Score 4 - 6: 20.3% MACE over next 6 weeks - Admit for Clinical Observation Score 7 - 10: 72.7% MACE over next 6 weeks - Early Invasive Strategies Allergies: Allergies: Allergies Coded Allergies Type Severity Reaction Last Updated Verified lisinopril Adverse Reaction Intermediate 10/21/16 Yes Physical Exam: PE: General: alert, no acute distress. Skin: warm, dry and intact, no erythema, no rash. HENT: bilateral external ears normal, oropharynx moist, nose normal. Head:: Normocephalic, atraumatic. Neck: Trachea midline. Eyes: EOMI, Normal conjunctiva, No drainage CARDIOVASCULAR: Regular rate and rhythm RESPIRATORY: No respiratory distress Back: Full range of motion. MUSCULOSKELETAL: Full range of motion of bilateral upper and lower extremities. Tenderness to palpation along the top of the patient's foot there is no overlying swelling no deformity or discoloration of right foot. GASTROINTESTINAL: Abdomen soft without rebound or guarding. NEUROLOGICAL: Alert and noted to person, place and time. No neurological deficits observed Psychiatric: Cooperative. Normal judgment Current Patient Data: Vital Signs: Vital Signs Date Time Temp Pulse Resp B/P (MAP) Pulse Ox O2 Delivery O2 Flow Rate FiO2 01/05/21 01:45 98.0 76 18 181/98 (125) 96 98.0 EKG: EKG: [] Radiology/Procedures: Radiology/Procedures: [] Course & Med Decision Making: Course & Med Decision Making Pertinent Labs and Imaging studies reviewed. (See chart for details) [] Dragon Disclaimer: Callie Disclaimer: This electronic medical record was generated, in whole or in part, using a voice recognition dictation system. Departure Departure Impression: Primary Impression: Foot pain Additional Impression: Foot pain, right Disposition: 01 HOME / SELF CARE / HOMELESS Condition: STABLE Referrals: NO PCP (PCP) CLINTON CALERO DPTequ[place] Patient Instructions: Musculoskeletal Pain Additional Instructions: Foot Pain Scripts Hydrocodone/Acetaminophen (Hydrocodone-Acetamin 5-325 mg) 1 Each Tablet 1 EACH PO Q4-6HRS, #20 TAB Prov: ANTOINETTE GOMES DO 01/05/21 ANTOINETTE GOMES DO Jan 05, 2021 02:06
[2021-01-05 02:26] VITALS: BP 149/57
[2021-01-05] MEDS ORDERED: HYDROcodone/APAP 5/325MG 1 TAB TABLET PO ONE (02:30)
== END 2021-01-05 02:28 | disposition home or self-care (01) ==
LOC: ER 01:30
DX: M79.671 Pain in right foot (principal); Z88.8 Allergy status to other drugs, medicaments and biological substances
CPT/HCPCS: 73630; 99283